=== PATIENT | female | born 1945 | race Caucasian/White ===

== ENCOUNTER 2016-12-16 13:00 | Emergency (ER) | payer MEDICARE, OTHER ==
[2016-12-16 11:17] LABS: BASOPHILS 0.4 %; BASOPHILS ABSOLUTE 0.05 10/3/uL (0.0-0.16); EOSINOPHILS 1.9 %; EOSINOPHILS ABSOLUTE 0.23 10/3/uL (0.0-0.53); ER CBC TAT 0 Hrs 08 Mins; HEMATOCRIT 32.9 % (36.0-48.0); HEMOGLOBIN 10.2 g/dL (12.0-16.0); IMMATURE GRANULOCYTES 1.1 %; IMMATURE GRANULOCYTES ABSOLUTE 0.13 10/3/uL (0.0-0.11); LYMPHOCYTES 18.2 %; LYMPHOCYTES ABSOLUTE 2.21 10/3/uL (0.67-4.30); MANUAL DIFF NO %; MEAN CORPUSCULAR HEMOGLOB 32.1 pg (26.0-34.0); MEAN CORPUSCULAR VOLUME 103.5 fL (80-100); MEAN PLATELET VOLUME 10.1 fL (9.2-13.0); MONOCYTES 7.7 %; MONOCYTES ABSOLUTE 0.93 10/3/uL (0.21-1.20); NEUTROPHILS 70.7 %; NEUTROPHILS ABSOLUTE 8.58 10/3/uL (2.02-8.40); PLATELET COUNT 206 10/3/uL (150-400); RBC DISTRIBUTION WIDTH 14.9 % (12.0-16.0); RED CELL COUNT 3.18 10/6/uL (4.0-5.6); WHITE BLOOD CELLS 12.1 10/3/uL (4.5-10.5)
[2016-12-16 11:24] LABS: BUN (BLOOD UREA NITROGEN) 67 MG/DL (6-23); CALCIUM, SERUM 8.7 MG/DL (8.5-10.4); CHLORIDE, SERUM 99 MMOL/L (96-112); CO2 (CARBON DIOXIDE) 23 MMOL/L (24-34); CREATININE 8.01 MG/DL (0.55-1.02); GFR AFRICAN AMERICAN 5 ML/MIN (>=60); GFR NON AFRICAN AMERICAN 5 ML/MIN (>=60); GLUCOSE, SERUM 150 MG/DL (60-99); SODIUM, SERUM 139 MMOL/L (135-148)
[2016-12-16 11:25] LABS: INFLUENZA A SCREEN NEGATIVE (NEGATIVE); INFLUENZA B SCREEN NEGATIVE (NEGATIVE)
[~2016-12-16 13:00] MED LIST: ABX PO; ACET500CAP PO; AMARYL4 PO; APRES25 PO; APRES50 PO; ASA5GR PO; ASAB PO; ASABAYER PO; ASAEC PO; BACDS PO; BENZONATATE PO; BIDIL20/37; BIDIL20/37 PO; CALMOSEPTINE O2.5 OZ TOP; CALTRA600D PO; CAT1 PO; CAT3 PO; CATAPRES3 TOP; CIP5 PO; CLARINEX5 MG PO; CLINDA150 PO; CO Q-10100 MG PO; CYANO1000T PO; DEPAK250ER PO; DEPAKOT250 PO; DEPAKOTEER PO; DEPASPRINK; DIAMODE2 MG PO; DSS PEG; DSS PO; EYE DROP1 OP; FENOGLIDE120 MG PO; FERROUS SULF325 M1 PO; FISH-EPA1000 MG PO; FOLIC PO; GLUCOPHAGE1000 MG PO; GLUCOTROL5 PO; HALF81 PO; HCTZ25B PO; HYDRALAZINE100 MG PO; HYDROCHLOROT25 MG PO; IBU-200200 MG PO; IMDUR30 PO; IRON; IRON160 MG PO; ISMO20 MG PO; ISORDIL10 PO; ISORDIL20 PO; JANUVIA100 MG PO; JANUVIA50 PO; KLOR-CON M2020 MEQ PO; KLOR-CON-2525 MEQ PO; L20 PO; LACT30UDL PEG; LANTUS SC; LANTUSCART SC; LEVEMIR SC; LEVOTHYROXIN150 MCG PO; LEVSINTAB PO; LIPITOR40 PO; LIPITOR80 MG PEG; LIPITOR80 MG PO; LOP25 PEG; LOP25 PO; LOP50 PO; LOTE40 PO; LOTREL1 CA5 PO; LOVAZA; LOVAZA1 GM PO; MAALOX MAX PEG; METAMUCIL CAN7 OZ PO; METHOC500B PO; MIRALAXPKT PEG; MOBIC7.5 PO; MOMUD PEG; MONOKET20 PO; MUCINEX1200 MG PO; MULTIPLE VIT PO; MULTIVIT/MIN PO; MULTIVITAMI1 PO; NASACORTAQ NAS; NEUR100 PO; NEXIUM40 MG PO; NEXIUM40 PO; NITROSTAT0.4 MG SL; NORCO1 TA1 PEG; NORV10 PO; NORV5; NORV5 PO; NOVOLOG SC; OMACOR; OS500+D PO; PCET PO; PERIOGARD0.12 % MT; PLAVIX PO; PREDFORTE OPH; PREV30 PO; PRILO PO; PRIN20 PO; PROAIR HFA INH; PROBIOTIC OTC PO; PROBIOTIC PO; PROTONIX PEG; PROTONIX PO; PROVENTSOL INH; PROVHFA INH; REFRESH OPH; RENVELA800 MG PO; SEVE800T PO; SPIRO25; SPIRO25 PO; SYN.15 PO; SYNTHROID PO; SYNTHROID137 MCG PO; SYNTHROID175 MCG PO; T PO; TEKTUR150 PO; TEKTURNA300 MG PO; TESS PO; THERGRANM PO; TRAN200 PEG; TRAN200 PO; TRANDAT100 PO; TRILIPIX135 MG PO; TYLENOL ARTH650 MG PEG; VICODINTAB PO; VITAMIN B-121000 MC1 SL; VITAMIN C100 MG PO; VITAMIN D1000 UNI1 PO; VITC500 PEG; VITC500 PO; VITE PO; VYTORIN 10/20 T1 TAB PO; X25 PEG; X25 PO; ZOFRAN4 PEG; ZYRTEC ALLGY10 MG PO; [UNRECOGNIZED DRUG - OTHER] TOP
[2017-01-04] MEDS ORDERED: LIPITOR40 PO (23:18)
[2017-01-04] MEDS ORDERED: DEPAKOT250 PO (23:18)
[2017-01-04] MEDS ORDERED: HALF81 PO (23:18)
[2017-01-04] MEDS ORDERED: ISORDIL20 PO (23:19)
[2017-01-04] MEDS ORDERED: NEUR100 PO (23:19)
[2017-01-04] MEDS ORDERED: ELIQUIS 5 MG TAB5 MG PO (23:19)
[2017-01-04] MEDS ORDERED: MOBIC7.5 PO (23:22)
[2017-01-04] MEDS ORDERED: LANTUSCART SC (23:22)
[2017-04-27] MEDS ORDERED: LIPITOR40 PO (20:29)
[2017-04-27] MEDS ORDERED: PACERONE100 MG PO (20:29)
[2017-04-27] MEDS ORDERED: DEPAK250ER PO (20:30)
[2017-04-27] MEDS ORDERED: NEUR100 PO (20:31)
[2017-04-27] MEDS ORDERED: ELIQUIS 5 MG TAB5 MG PO (20:31)
[2017-04-27] MEDS ORDERED: ISORDIL20 PO (20:34)
[2017-04-27] MEDS ORDERED: LANTUS SC (20:36)
[2017-04-27] MEDS ORDERED: ZESTRIL2.5 MG PO (20:36)
[2017-04-27] MEDS ORDERED: MULTIVITAMI1 PO (20:37)
[2017-04-27] MEDS ORDERED: TOPXL50 PO (20:37)
[2017-04-27] MEDS ORDERED: NOVOLOG SC (20:38)
[2017-04-27] MEDS ORDERED: PROTONIX PO (20:38)
[2017-04-27] MEDS ORDERED: SYN.15 PO (20:39)
[2017-04-27] MEDS ORDERED: LEVOTHYROXIN175 MCG PO (20:42)
[2017-04-27] MEDS ORDERED: VITC500 PO (20:43)
[2017-04-27] MEDS ORDERED: VITAMIN D1000 UNI1 PO (20:43)
[2017-04-27] MEDS ORDERED: IRON PO (20:44)
[2017-04-27] MEDS ORDERED: ACET500CAP PO (20:45)
[2017-04-27] MEDS ORDERED: CALCIUM CARBONATE PO (20:46)
[2017-04-27] MEDS ORDERED: DESITIN TOP (20:47)
[2017-04-27] MEDS ORDERED: ANTIFUNGAL POWDER TOP (20:48)
[2017-05-12] MEDS ORDERED: CORDARONE PO (02:52)
[2017-05-12] MEDS ORDERED: LIPITOR40 PO (02:52)
[2017-05-12] MEDS ORDERED: DEPAKOT250 PO (02:53)
[2017-05-12] MEDS ORDERED: ELIQUIS 5 MG TAB5 MG PO (02:54)
[2017-05-12] MEDS ORDERED: NEUR100 PO (02:54)
[2017-05-12] MEDS ORDERED: ISORDIL20 PO (02:55)
[2017-05-12] MEDS ORDERED: LANTUS SQ (02:56)
[2017-05-12] MEDS ORDERED: PRIN2.5 PO (02:56)
[2017-05-12] MEDS ORDERED: TOPXL50 PO (02:56)
[2017-05-12] MEDS ORDERED: MULTIPLE VIT PO (02:57)
[2017-05-12] MEDS ORDERED: PROTONIX20 MG (03:04)
[2017-05-12] MEDS ORDERED: NOVOLOG SC (03:04)
[2017-05-12] MEDS ORDERED: PROTONIX PO (03:05)
[2017-05-12] MEDS ORDERED: SYN.15 PO (03:06)
[2017-05-12] MEDS ORDERED: SYNTHROID175 MCG PO (03:07)
[2017-05-12] MEDS ORDERED: VITAMIN D1000 UNI1 PO (03:09)
[2017-05-12] MEDS ORDERED: VITC500 PO (03:09)
[2017-05-12] MEDS ORDERED: FERROUS SULF325 M1 PO (03:10)
[2017-05-12] MEDS ORDERED: ACET500CAP PO (03:11)
[2017-05-12] MEDS ORDERED: CALCIUM CARBONATE ×2 (03:13→03:14)
[2017-05-12] MEDS ORDERED: DESITIN (03:14)
[2017-05-12] MEDS ORDERED: ANTIFUNGAL POWDER TOP (03:15)
== END 2016-12-16 14:56 | disposition home or self-care (01) ==
LOC: ER 13:00
PROVIDERS: Emergency Medicine
DX: J06.9 Acute upper respiratory infection, unspecified (principal); I25.2 Old myocardial infarction; Z95.0 Presence of cardiac pacemaker; Z95.5 Presence of coronary angioplasty implant and graft; F32.9 Major depressive disorder, single episode, unspecified; E11.9 Type 2 diabetes mellitus without complications; Z86.73 Personal history of transient ischemic attack (TIA), and cerebral infarction without residual deficits; Z88.5 Allergy status to narcotic agent; Z88.0 Allergy status to penicillin; Z88.1 Allergy status to other antibiotic agents; Z88.2 Allergy status to sulfonamides; Z91.041 Radiographic dye allergy status; Z88.8 Allergy status to other drugs, medicaments and biological substances; Z91.048 Other nonmedicinal substance allergy status; Z91.09 Other allergy status, other than to drugs and biological substances; Z79.82 Long term (current) use of aspirin; Z79.899 Other long term (current) drug therapy; Z79.84 Long term (current) use of oral hypoglycemic drugs
CPT/HCPCS: 71010; 80048; 85025; 87804; 93005; 99285

== ENCOUNTER 2017-01-04 23:22 | Inpatient (IN) | payer MEDICARE, OTHER ==
--- NOTE | ~2017-01-04 | PRECARD ---
H&P [facility] [address] [facility] [place]. [address] NAME: MARISOL REHMAN : 43 STATUS : ADM IN [facility]#: [id number] AGE: 71 ADM/REG DATE : 01/04/17 MR#: [id number] REPORT SERV DATE: 01/05/17 DICTATED BY: ANITA RAO DATE: 01/05/17 REPORT STATUS : Draft TRANSCRIBED BY: KELTON DATE: 01/05/17 DATE OF ADMISSION: 01/04/2017 HISTORY: Ms. Marisol Rehman is a 71-year-old woman with end-stage renal disease, on dialysis, creatinine of 5.1, admitted with diffuse muscle aches and pains, Cardiology is consulted because of a troponin level of 0.3. Ms. Rehman has known coronary artery disease. She has undergone prior bypass surgery. She has known chronic total occlusion of one of the vein grafts, to the PDA. She also has history of prior stroke, implanted Medtronic LINQ device demonstrated no atrial arrhythmia. She also has peripheral arterial disease, undergone prior bypass. She has sick sinus syndrome, she has a Medtronic pacemaker. She has end-stage renal disease, on dialysis, hypertension, diabetes, irritable bowel. She is admitted with a oxkkm-fx-pekt-day history of diffuse weakness, malaise, myalgias, arthralgias. She underwent dialysis on Friday without difficulty. Since then, she has had trouble walking. She requires assistance to walk within her own house. She absolutely denies any chest discomfort whatsoever. She has had no orthopnea or PND. She denies palpitations. No stroke or stroke-like symptoms. PAST MEDICAL HISTORY: Diabetes; hypertension; end-stage renal disease, on dialysis, Friday, Friday, Friday; bipolar disorder. MEDICATIONS: Tylenol, Eliquis, vitamin C, aspirin, Lipitor, Depakote, doxycycline, iron, Neurontin, insulin, isosorbide dinitrate, levothyroxine, meloxicam, metoprolol, multivitamin, Protonix, Renvela, antifungal medications, zinc oxide. Please see the hospital list for full doses which I have reviewed. SOCIAL HISTORY: Denies alcohol and tobacco. REVIEW OF SYSTEMS: Complete review of systems obtained, pertinent negative and unremarkable, except as noted above and below. All systems have been addressed. PHYSICAL EXAMINATION: VITAL SIGNS: Blood pressure 160/70, heart rate approximately 80. GENERAL: Appears lethargic, somnolent, but fully arousable and alert, flat affect. HEENT: No xanthelasma; lips without cyanosis. LUNGS: Clear to auscultation, no wheezes, rales or rhonchi; good breath sounds. COR: No JVD or hepatojugular reflux, no rubs or gallops, impulse mid clavicular line without carotid or abdominal bruits; normal S1 and S2. 2/6 murmur at the apex. ABDOMEN: Bowel sounds positive, normal activity, without tenderness, masses or hepatosplenomegaly. EXTREMITIES: No cyanosis. No edema at all. SKIN: Normal turgor. H&P [address] [address] NAME: MARISOL REHMAN : 43 STATUS : ADM IN [facility]#: [id number] AGE: 71 ADM/REG DATE : 01/04/17 MR#: [id number] REPORT SERV DATE: 01/05/17 DICTATED BY: ANITA RAO DATE: 01/05/17 REPORT STATUS : Draft TRANSCRIBED BY: KELTON DATE: 01/05/17 MS: Normal muscle strength, without kyphosis/scoliosis. NEURO/PSYCH: Alert and oriented times 4, no apparent anxiety or depression. DATA: BUN is 41, creatinine 5.8. White count 8.3, platelet count is 186, hematocrit 36.1. Troponin 0.3. EKG demonstrates sinus rhythm with leftward axis. Nonspecific ST-T wave changes. ASSESSMENT: Ms. Rehman is a 71-year-old woman with known coronary artery disease, end- stage renal disease, admitted with diffuse myalgias, arthralgias, malaise, and weakness. On repeated questioning, she denies any chest discomfort at all. In fact, I am not certain why troponin level was checked. Her symptoms did not suggest an acute coronary syndrome. Her troponin of 0.3 may be chronically at that level given her renal failure on dialysis. Her EKG shows no ischemic changes. PLAN: 1. Advance antihypertensive medications given the elevated systolic pressure with known coronary artery disease and diabetes. 2. Serial biomarkers. 3. Echocardiogram to assess left ventricle function. 4. I will order a CPK given her myalgias and weakness. MT/MODL Anita Rao M.D. / [id number] CC: Lindsey Becerra M.D.
--- NOTE | ~2017-01-04 | DS ---
Discharge Summary [facility] [address] [place]. [address] NAME: MOMO REHMAN : 43 STATUS : DIS IN PAT#: [id number] AGE: 71 ADM/REG DATE : 01/04/17 MR#: [id number] REPORT SERV DATE: 01/23/17 DICTATED BY: JHONNY JIMENEZ DATE: 01/23/17 REPORT STATUS : Draft TRANSCRIBED BY: KELTON DATE: 01/23/17 Data Collection from hospitalization DISCHARGE DIAGNOSES: 1. Upper respiratory infection-not otherwise specified. 2. End-stage renal disease. 3. Atherosclerotic cardiovascular disease, status post coronary artery bypass. 4. Ischemic cardiomyopathy. 5. Anemia of chronic kidney disease. 6. Insulin-dependent diabetes mellitus. 7. Hypertension. 8. History of cryptogenic cerebrovascular accident. 9. Irritable bowel syndrome. 10.Hyperlipidemia. 11.History of bipolar disorder. 12.Peripheral vascular disease. CONSULTATIONS: 1. Amilcar Adler M.D. 2. Jose Rao M.D. PROCEDURES: 1. Cardiac catheterization, 01/08/2017. 2. CT scan of the brain without contrast, 01/05/2017. DISCHARGE MEDICATIONS: Vitamin C 500 mg twice a day; aspirin 81 mg daily; Lipitor 40 mg at bedtime; Cordarone 200 mg daily; vitamin D 1000 units daily; Depakote 750 mg twice a day; Neurontin 100 mg at bedtime; NovoLog injection insulin as instructed; Isordil 45 mg daily; Synthroid 150 mcg on Saturdays and Sundays as instructed; Synthroid 175 mcg on Friday, Friday, Friday, , and Friday as instructed; Prinivil 2.5 mg daily; multivitamins one tablet daily; Toprol-XL 50 mg daily; Protonix 40 mg daily; Renvela 1600 mg with meals; Tylenol caplet 500 mg every six hours as needed; albumin 12.5 g IV as needed; Mylanta 30 mL every four hours as needed; Cathflo 2 mg IV as needed; atropine 0.5 mg IV as needed; ferrous sulfate 325 mg daily. CONDITION ON DISCHARGE: Stable. DISPOSITION: The patient was discharged to [facility] on a renal diet with activities as instructed. HOSPITAL COURSE: This is a 71-year-old female who has end-stage renal disease and is on dialysis. She has a creatinine of 5.1. She presented to the hospital with diffuse muscle aches and pain. She had undergone dialysis on Friday prior to admission without difficulty. Since then, she has had trouble walking. She required assistance to walk within her own house. She absolutely denied any chest discomfort, orthopnea or PND. She denies palpitations, stroke or stroke-like symptoms. She was admitted to the hospital at this time for further evaluation and treatment. Discharge Summary [address] [place]. [address] NAME: MOMO REHMAN : 43 STATUS : DIS IN PAT#: [id number] AGE: 71 ADM/REG DATE : 01/04/17 MR#: [id number] REPORT SERV DATE: 01/23/17 DICTATED BY: JHONNY JIMENEZ DATE: 01/23/17 REPORT STATUS : Draft TRANSCRIBED BY: KELTON DATE: 01/23/17 Upon admission, she was seen by Dr. Jose Rao. The patient was found to have a troponin level of 0.3. She does have coronary artery disease and had undergone prior bypass surgery. She has known chronic total occlusion of one of the vein graft to the PDA. She also has a history of prior stroke and implanted Medtronic LINQ device demonstrated no atrial arrhythmia. She also has peripheral arterial disease and had undergone prior bypass. She has sick sinus syndrome and has a Medtronic pacemaker. She denied any chest discomfort. Creatinine level was 5.8. EKG demonstrated sinus rhythm with leftward axis and nonspecific ST-T wave changes. It was uncertain as to why her troponin level was checked. Her symptoms did not suggest acute coronary syndrome. Her troponin of 0.3 may be chronically at that level given her renal failure on dialysis. EKG showed no ischemic changes. She recommended that we advanced antihypertensive medications given the elevated systolic pressure with known coronary artery disease and diabetes. Serial biomarkers would be obtained. Echocardiogram would be performed to assess left ventricular function. CPK was going to be checked given her myalgias and weakness. She was also seen by Dr. Amilcar Adler, the following day regarding myalgia and cough. She did have a one-day history of cough, productive of brown sputum and significant weakness and malaise. She said that she attended dialysis on Jose prior to this admission without any issues or complaints. She completed dialysis and felt fine afterwards. She denied having any sick contacts. She denied having chest pain, shortness of breath, fever or chills. Blood cultures have been obtained and were pending. Flu test was negative for both A and B. Empiric Levaquin and Tamiflu were started. We were going to check TSH, free T4, procalcitonin, and sputum cultures. Sliding scale insulin will be provided. Lantus was going to be held. Given her poor oral intake, her home blood pressure medications were resumed. Subcu heparin prophylaxis was begun. On 01/06/2017, her body pain was somewhat better. She was still weak. Blood cultures were negative thus far. Levaquin was continued. Her cough was still productive. Her dyspnea did improve after dialysis. She had no chest pain. On 01/07/2017, she said she had a few seconds of chest pain during hemodialysis; otherwise, she was doing well. Her lungs were clear. She was in a sinus rhythm. There were no symptoms suggestive of coronary ischemia. Echocardiogram was performed. On 01/09/2017, she had no edema. She was alert and cooperative. Her lungs were clear. Hemodialysis therapy continued. She was evaluated by Physical Therapy. She had undergone a CT scan of the brain without contrast a couple of days previously. This showed no acute bleed. There was no acute infarct suggested. It was felt that the patient should undergo a cardiac catheterization. She was taken to the [facility] where she underwent the above-mentioned procedure by Dr. Rick Weaver. She tolerated this well, and there were no complications. She had an ejection fraction of 35%. She had multiple episodes of ventricular tachycardia on the evening of 01/09/2017. She had been in ventricular pacing since 2300 hours. Amiodarone was started. Medtronic dual-chamber pacemaker was checked and revealed normal function. On 01/11/2017, hemodialysis therapy continued. She had no chest pain or shortness of breath. Her breathing seemed to be better. Her Toprol-XL was increased. Over the next few days, she had no new symptoms. Discharge planning was performed. She seemed to be getting stronger. On 01/14/2017, she said she felt weak. She had no chest pain or dyspnea. Her lungs remained clear. She had no recurrence of nonsustained ventricular tachycardia. Amiodarone was continued. Discharge instructions were given. Due to her improved and stable condition, she was discharged to [facility] with the above-stated instructions. Discharge Summary [address] [address] NAME: MOMO REHMAN : 43 STATUS : DIS IN PAT#: [id number] AGE: 71 ADM/REG DATE : 01/04/17 MR#: [id number] REPORT SERV DATE: 01/23/17 DICTATED BY: JHONNY JIMENEZ DATE: 01/23/17 REPORT STATUS : Draft TRANSCRIBED BY: KELTON DATE: 01/23/17 Information collected by: Fely Tracy I submit the above information as my discharge summary. TG/KELTON Jhonny Jimenez M.D. / [id number] CC: Lindsey Becerra M.D. Nilesh C Patel, M.D. Mark Thel, M.D. [facility]
--- NOTE | ~2017-01-04 | HP ---
History And Physical [place] [address] [facility] [place]. [address] NAME: MOMO REHMAN : 43 STATUS : ADM IN PAT#: [id number] AGE: 71 ADM/REG DATE : 01/04/17 MR#: [id number] REPORT SERV DATE: 01/05/17 DICTATED BY: MAYELIN ADLER DATE: 01/05/17 REPORT STATUS : Draft TRANSCRIBED BY: KELTON DATE: 01/05/17 DATE OF ADMISSION: 01/05/2017 CHIEF COMPLAINT: Myalgia and cough. BRIEF HISTORY OF PRESENT ILLNESS: 71-year-old white female with end-stage renal disease, hemodialysis on Friday, Friday, and Friday at [facility] via left upper extremity AV fistula in the setting of diabetes mellitus type 2, hypertension, hyperlipidemia, coronary artery disease status post CABG in 2010 with sick-sinus syndrome and pacemaker placement in 04/2013 who presents to [facility] ER with 1-day history of cough productive of "brown sputum" and significant weakness and malaise. She states she attended dialysis on Friday, 01/03 without any issues or complaints and completed dialysis and felt fine afterwards. She denies any sick contacts. Denies any chest pain, shortness of breath, fevers or chills. The patient admitted for further evaluation and concern for elevated troponin from 0.34-0.41 prompting cardiology evaluation. Initial evaluation reveals blood cultures are pending and a flu test that was negative for both A and B. White count of 8.3. PAST MEDICAL HISTORY: 1. End-stage renal disease, hemodialysis on Friday, Friday, and Friday, left upper extremity AV fistula at [facility]. 2. Coronary artery disease, status post CABG in 2010 x4 vessels with chronic total occlusion of the saphenous vein graft to acute marginal. Sick sinus syndrome with pacemaker placement. 3. History of cryptogenic CVAs without arrhythmias noted on loop monitor. 4. Hypertension. 5. Diabetes mellitus type 2. 6. Hyperlipidemia. 7. Irritable bowel syndrome. 8. Peripheral vascular disease with stent to right femoral vessel. 9. History of bipolar disorder. MEDICATIONS ON ADMISSION: Tylenol, Eliquis 5 mg b.i.d., vitamin C 500 mg b.i.d., aspirin 81 mg daily, Lipitor 40 mg at bedtime, vitamin D 1000 units daily, Depakote 750 mg b.i.d., doxycycline 100 mg b.i.d. x10 days completed on 01/02, iron sulfate 325 mg daily, Neurontin 100 mg at bedtime, sliding scale insulin, Lantus insulin, Isordil, Synthroid 150 mcg on Friday and Friday and 175 mcg other days, Mobic daily, Lopressor 12.5 mg b.i.d., multivitamin, Protonix, Renvela, zinc oxide cream. ALLERGIES: MULTIPLE ALLERGIES INCLUDING AVANDIA, SAVELLA, IODINATED CONTRAST, PENICILLIN, IBUPROFEN, HYDROCODONE, CLINDAMYCIN, ADHESIVE BANDAGES, AZITHROMYCIN, JANUVIA. ADVERSE REACTIONS INCLUDE LORCET, MORPHINE, BACTRIM, FLOXIN, ZEST SOAP. SOCIAL HISTORY: Denies tobacco, alcohol, or illicit drug use. FAMILY HISTORY: No history of renal disease. History And Physical [address] [address] NAME: MOMO REHMAN : 43 STATUS : ADM IN [facility]#: [id number] AGE: 71 ADM/REG DATE : 01/04/17 MR#: [id number] REPORT SERV DATE: 01/05/17 DICTATED BY: MAYELIN ADLER DATE: 01/05/17 REPORT STATUS : Draft TRANSCRIBED BY: KELTON DATE: 01/05/17 REVIEW OF SYSTEMS: Except as mentioned. PHYSICAL EXAMINATION: VITAL SIGNS: Temperature 98.6, blood pressure 170/67, pulse is 92, respiratory rate is 18. GENERAL: Chronically ill-appearing white female, in no acute distress. HEENT: Normocephalic and atraumatic. Pupils are equal. Mucous membranes are dry. NECK: Supple. No thyromegaly. CARDIOVASCULAR: Regular rate and rhythm. No murmurs appreciated. Normal S1, S2. RESPIRATORY: Clear to auscultation bilaterally with normal respiratory effort. ABDOMEN: Soft, nontender, nondistended. Positive bowel sounds. No organomegaly. EXTREMITIES: No clubbing, cyanosis, or edema. Left upper extremity AV fistula, positive bruit and thrill. SKIN: No rashes or ulcerations appreciated. NEURO: Moves all extremities well but generalized weakness noted. PSYCH: Oriented x3 with flat affect. : No Carter. No bladder tenderness. LAB DATA: Sodium 141, potassium 5.1, chloride 99, bicarb 26, BUN 41, creatinine 5.8, glucose is 98, calcium is 9.4, magnesium 1.9. White count 8.3, hemoglobin is 10.8, platelet count is 186. INR is 1.4. ASSESSMENT AND PLAN: 1. End-stage renal disease, [facility], Friday, Friday, Friday, underwent hemodialysis on Friday. 2. Myalgias and weakness. Flu is negative. White blood count normal. Afebrile. Blood cultures are pending. Questionable viral prodrome, questionable bronchitis. Empiric Levaquin and Tamiflu. Check TSH, free T4, procalcitonin, sputum cultures. 3. Coronary artery disease with history of bypass and slightly elevated troponins. Appreciate Cardiology evaluation. Recent cath revealing chronic occluded saphenous vein graft with medical management. Serial cardiac markers. No ACS per Cardiology. 4. Diabetes mellitus type 2. Sliding scale insulin and Accu-Cheks. Hold Lantus given poor p.o. intake. 5. Hypertension. Resume home medications. 6. Prophylaxis, heparin subcu b.i.d. NCP/MODL Mayelin Adler M.D. / [id number] CC: Federico Holly M.D. History And Physical [address] [address] NAME: MOMO REHMAN : 43 STATUS : ADM IN PAT#: [id number] AGE: 71 ADM/REG DATE : 01/04/17 MR#: [id number] REPORT SERV DATE: 01/05/17 DICTATED BY: MAYELIN ADLER. DATE: 01/05/17 REPORT STATUS : Draft TRANSCRIBED BY: MODL DATE: 01/05/17 Cristal Han M.D.
[2017-01-04 22:35] LABS: BASOPHILS ABSOLUTE 0.08 10/3/uL (0.0-0.16); EOSINOPHILS 2.9 %; EOSINOPHILS ABSOLUTE 0.24 10/3/uL (0.0-0.53); ER CBC TAT 0 Hrs 13 Mins; HEMATOCRIT 36.1 % (36.0-48.0); HEMOGLOBIN 10.8 g/dL (12.0-16.0); IMMATURE GRANULOCYTES 0.7 %; IMMATURE GRANULOCYTES ABSOLUTE 0.06 10/3/uL (0.0-0.11); LYMPHOCYTES 18.1 %; LYMPHOCYTES ABSOLUTE 1.51 10/3/uL (0.67-4.30); MANUAL DIFF NO %; MEAN CORPUS HGB CONC 29.9 g/dL (32.0-36.0); MEAN CORPUSCULAR HEMOGLOB 31.6 pg (26.0-34.0); MEAN CORPUSCULAR VOLUME 105.6 fL (80-100); MEAN PLATELET VOLUME 10.6 fL (9.2-13.0); MONOCYTES 16.3 %; MONOCYTES ABSOLUTE 1.36 10/3/uL (0.21-1.20); NEUTROPHILS ABSOLUTE 5.08 10/3/uL (2.02-8.40); PLATELET COUNT 186 10/3/uL (150-400); RBC DISTRIBUTION WIDTH 16.6 % (12.0-16.0); RED CELL COUNT 3.42 10/6/uL (4.0-5.6); WHITE BLOOD CELLS 8.3 10/3/uL (4.5-10.5)
[2017-01-04 22:43] LABS: CALCIUM, SERUM 9.4 MG/DL (8.5-10.4); CHLORIDE, SERUM 99 MMOL/L (96-112); CO2 (CARBON DIOXIDE) 26 MMOL/L (24-34); POTASSIUM, SERUM 5.1 MMOL/L (3.5-5.3); SODIUM, SERUM 141 MMOL/L (135-148)
[2017-01-04 22:45] LABS: BUN (BLOOD UREA NITROGEN) 41 MG/DL (6-23); CREATININE 5.81 MG/DL (0.55-1.02); GFR AFRICAN AMERICAN 8 ML/MIN (>=60); GFR NON AFRICAN AMERICAN 7 ML/MIN (>=60); GLUCOSE, SERUM 90 MG/DL (60-99); INTERNATIONAL NORMAL RATI 1.4 UNITS (-)
[2017-01-04 22:46] LABS: CHEST PAIN PROFILE TAT 0 Hrs 24 Mins; PARTIAL THROMBO TIME 36.3 SEC (22.5-37.2); PROTIME (NOT ORD) 17.2 SEC (12.0-14.5); TROPONIN I 0.34 NG/ML (<0.05)
[~2017-01-04 23:22] MED LIST changes: +ELIQUIS 5 MG TAB5 MG PO
[2017-01-04] MEDS ORDERED: TOPXL50 PO (23:23)
[2017-01-04] MEDS ORDERED: MULTIPLE VIT PO (23:23)
[2017-01-04] MEDS ORDERED: NOVOLOG SC (23:24)
[2017-01-04] MEDS ORDERED: PROTONIX PO (23:24)
[2017-01-04] MEDS ORDERED: SYN.15 PO (23:25)
[2017-01-04] MEDS ORDERED: RENVELA800 MG PO (23:25)
[2017-01-04] MEDS ORDERED: VITAMIN D1000 UNI1 PO (23:26)
[2017-01-04] MEDS ORDERED: VITC500 PO (23:26)
[2017-01-04] MEDS ORDERED: SYNTHROID175 MCG PO (23:26)
[2017-01-04] MEDS ORDERED: FERROUS SULF325 M1 PO (23:26)
[2017-01-04] MEDS ORDERED: DESITIN TOP (23:27)
[2017-01-04] MEDS ORDERED: ACET500CAP PO (23:27)
[2017-01-04] MEDS ORDERED: MONODOX100 MG PO (23:30)
[2017-01-05 00:03] LABS: INFLUENZA A SCREEN NEGATIVE (NEGATIVE); INFLUENZA B SCREEN NEGATIVE (NEGATIVE)
[2017-01-05 12:25] LABS: BE (BASE EXCESS) -5.1 MEQ/L (0 +/- 2.5); CARBOXYHEMOGLOBIN 0.7 % (0-3); DEVICE NC; HCO3 (ACTUAL BICARBONATE) 19.5 MEQ/L (23-27); HEMOBLOGIN CONTENT 10.8 G/DL (12-16); INSTRUMENT SERIAL # 11843; METHEMOGLOBIN 0.3 % (0-3); O2 CONTENT 13.8 VOL% (18-24); OPERATOR ID 18642; PCO2 (CO2 TENSION) 35 MMHG (35-45); PO2 (O2 TENSION) 67 MMHG (79-93); SAMPLE Arterial; pH 7.37 (7.37-7.43)
[2017-01-05 14:15] LABS: CPK 35 U/L (0-200)
[2017-01-05 14:16] LABS: CK-MB 1.5 NG/ML
[2017-01-05 14:17] LABS: TROPONIN I 0.47 NG/ML (<0.05)
[2017-01-05 22:49] LABS: CPK 46 U/L (0-200)
[2017-01-05 22:50] LABS: CK-MB 1.7 NG/ML
[2017-01-06 09:04] LABS: BASOPHILS 0.5 %; BASOPHILS ABSOLUTE 0.05 10/3/uL (0.0-0.16); EOSINOPHILS 0.1 %; EOSINOPHILS ABSOLUTE 0.01 10/3/uL (0.0-0.53); HEMOGLOBIN 9.5 g/dL (12.0-16.0); IMMATURE GRANULOCYTES 0.5 %; IMMATURE GRANULOCYTES ABSOLUTE 0.05 10/3/uL (0.0-0.11); LYMPHOCYTES 24.3 %; LYMPHOCYTES ABSOLUTE 2.62 10/3/uL (0.67-4.30); MEAN CORPUSCULAR HEMOGLOB 31.9 pg (26.0-34.0); MEAN PLATELET VOLUME 10.5 fL (9.2-13.0); MONOCYTES 10.2 %; NEUTROPHILS 64.4 %; NEUTROPHILS ABSOLUTE 6.97 10/3/uL (2.02-8.40); PLATELET COUNT 157 10/3/uL (150-400); RBC DISTRIBUTION WIDTH 16.9 % (12.0-16.0); RED CELL COUNT 2.98 10/6/uL (4.0-5.6); WHITE BLOOD CELLS 10.8 10/3/uL (4.5-10.5)
[2017-01-06 09:05] LABS: HEMATOCRIT 30.2 % (36.0-48.0); MANUAL DIFF NO %; MEAN CORPUS HGB CONC 31.5 g/dL (32.0-36.0); MEAN CORPUSCULAR VOLUME 101.3 fL (80-100)
[2017-01-06 09:25] LABS: ALBUMIN 2.7 G/DL (3.5-5.0); CHLORIDE, SERUM 99 MMOL/L (96-112); CPK 34 U/L (0-200); FREE T4 1.09 NG/DL (0.76-1.46); GLUCOSE, SERUM 89 MG/DL (60-99); SODIUM, SERUM 138 MMOL/L (135-148)
[2017-01-06 09:26] LABS: BUN (BLOOD UREA NITROGEN) 63 MG/DL (6-23); CALCIUM, SERUM 8.2 MG/DL (8.5-10.4); CK-MB 1.7 NG/ML; CO2 (CARBON DIOXIDE) 20 MMOL/L (24-34); CREATININE 8.02 MG/DL (0.55-1.02); GFR AFRICAN AMERICAN 5 ML/MIN (>=60); GFR NON AFRICAN AMERICAN 5 ML/MIN (>=60); PHOSPHORUS, SERUM 6.7 MG/DL (2.5-4.5); POTASSIUM, SERUM 6.2 MMOL/L (3.5-5.3)
[2017-01-06 12:06] LABS: PROCALCITONIN 1.45 ng/mL (<0.5)
[2017-01-07 12:08] LABS: BASOPHILS 0.9 %; BASOPHILS ABSOLUTE 0.05 10/3/uL (0.0-0.16); EOSINOPHILS 2.6 %; EOSINOPHILS ABSOLUTE 0.14 10/3/uL (0.0-0.53); HEMATOCRIT 29.7 % (36.0-48.0); HEMOGLOBIN 9.1 g/dL (12.0-16.0); IMMATURE GRANULOCYTES 0.7 %; IMMATURE GRANULOCYTES ABSOLUTE 0.04 10/3/uL (0.0-0.11); LYMPHOCYTES 33.8 %; LYMPHOCYTES ABSOLUTE 1.85 10/3/uL (0.67-4.30); MANUAL DIFF NO %; MEAN CORPUS HGB CONC 30.6 g/dL (32.0-36.0); MEAN CORPUSCULAR HEMOGLOB 31.8 pg (26.0-34.0); MEAN CORPUSCULAR VOLUME 103.8 fL (80-100); MEAN PLATELET VOLUME 10.9 fL (9.2-13.0); MONOCYTES 11.3 %; MONOCYTES ABSOLUTE 0.62 10/3/uL (0.21-1.20); NEUTROPHILS 50.7 %; NEUTROPHILS ABSOLUTE 2.77 10/3/uL (2.02-8.40); PLATELET COUNT 147 10/3/uL (150-400); RBC DISTRIBUTION WIDTH 16.8 % (12.0-16.0); RED CELL COUNT 2.86 10/6/uL (4.0-5.6); WHITE BLOOD CELLS 5.5 10/3/uL (4.5-10.5)
[2017-01-07 12:13] LABS: BUN (BLOOD UREA NITROGEN) 43 MG/DL (6-23); CALCIUM, SERUM 8.3 MG/DL (8.5-10.4); CHLORIDE, SERUM 101 MMOL/L (96-112); CO2 (CARBON DIOXIDE) 25 MMOL/L (24-34); GFR AFRICAN AMERICAN 7 ML/MIN (>=60); GFR NON AFRICAN AMERICAN 6 ML/MIN (>=60); GLUCOSE, SERUM 115 MG/DL (60-99); POTASSIUM, SERUM 4.1 MMOL/L (3.5-5.3); SODIUM, SERUM 140 MMOL/L (135-148)
[2017-01-08 08:33] LABS: BASOPHILS 1.4 %; BASOPHILS ABSOLUTE 0.07 10/3/uL (0.0-0.16); EOSINOPHILS 4.8 %; EOSINOPHILS ABSOLUTE 0.24 10/3/uL (0.0-0.53); HEMATOCRIT 29.5 % (36.0-48.0); HEMOGLOBIN 8.9 g/dL (12.0-16.0); IMMATURE GRANULOCYTES 0.4 %; IMMATURE GRANULOCYTES ABSOLUTE 0.02 10/3/uL (0.0-0.11); LYMPHOCYTES 35.8 %; LYMPHOCYTES ABSOLUTE 1.81 10/3/uL (0.67-4.30); MANUAL DIFF NO %; MEAN CORPUS HGB CONC 30.2 g/dL (32.0-36.0); MEAN CORPUSCULAR HEMOGLOB 31.6 pg (26.0-34.0); MEAN CORPUSCULAR VOLUME 104.6 fL (80-100); MEAN PLATELET VOLUME 10.4 fL (9.2-13.0); MONOCYTES 9.9 %; NEUTROPHILS 47.7 %; NEUTROPHILS ABSOLUTE 2.41 10/3/uL (2.02-8.40); PLATELET COUNT 144 10/3/uL (150-400); RBC DISTRIBUTION WIDTH 16.5 % (12.0-16.0); RED CELL COUNT 2.82 10/6/uL (4.0-5.6); WHITE BLOOD CELLS 5.1 10/3/uL (4.5-10.5)
[2017-01-08 08:39] LABS: INTERNATIONAL NORMAL RATI 1.1 UNITS (-)
[2017-01-08 08:40] LABS: PROTIME (NOT ORD) 14.4 SEC (12.0-14.5)
[2017-01-08 08:45] LABS: ALBUMIN 2.8 G/DL (3.5-5.0); CALCIUM, SERUM 8.8 MG/DL (8.5-10.4); CHLORIDE, SERUM 101 MMOL/L (96-112); CHOL/HDL RATIO(NOT ORDER) 2.7 (0-5); CHOLESTEROL 88 MG/DL (< 200); CO2 (CARBON DIOXIDE) 27 MMOL/L (24-34); GLUCOSE, SERUM 99 MG/DL (60-99); HDL CHOLESTEROL 33 MG/DL (> 49); LDL CHOLESTEROL 12 MG/DL (< 130); NON-HDL CHOLESTEROL 55 MG/DL (< 160); POTASSIUM, SERUM 3.8 MMOL/L (3.5-5.3); SODIUM, SERUM 140 MMOL/L (135-148); TRIGLYCERIDE 215 MG/DL (< 150)
[2017-01-08 08:49] LABS: BUN (BLOOD UREA NITROGEN) 20 MG/DL (6-23); GFR AFRICAN AMERICAN 11 ML/MIN (>=60); GFR NON AFRICAN AMERICAN 9 ML/MIN (>=60); PHOSPHORUS, SERUM 2.6 MG/DL (2.5-4.5)
[2017-01-09 08:21] LABS: CALCIUM, SERUM 8.7 MG/DL (8.5-10.4); CHLORIDE, SERUM 101 MMOL/L (96-112); CO2 (CARBON DIOXIDE) 23 MMOL/L (24-34); CREATININE 4.31 MG/DL (0.55-1.02); GFR AFRICAN AMERICAN 11 ML/MIN (>=60); GFR NON AFRICAN AMERICAN 10 ML/MIN (>=60); SODIUM, SERUM 138 MMOL/L (135-148)
[2017-01-09 08:22] LABS: BUN (BLOOD UREA NITROGEN) 28 MG/DL (6-23); GLUCOSE, SERUM 170 MG/DL (60-99); POTASSIUM, SERUM 5.1 MMOL/L (3.5-5.3)
[2017-01-09 21:20] LABS: CALCIUM, SERUM 8.4 MG/DL (8.5-10.4); CHLORIDE, SERUM 103 MMOL/L (96-112); CO2 (CARBON DIOXIDE) 25 MMOL/L (24-34); GFR AFRICAN AMERICAN 14 ML/MIN (>=60); GFR NON AFRICAN AMERICAN 12 ML/MIN (>=60); GLUCOSE, SERUM 195 MG/DL (60-99); SODIUM, SERUM 142 MMOL/L (135-148)
[2017-01-09 21:26] LABS: BUN (BLOOD UREA NITROGEN) 17 MG/DL (6-23); CREATININE 3.59 MG/DL (0.55-1.02); POTASSIUM, SERUM 3.6 MMOL/L (3.5-5.3)
[2017-01-10 12:04] LABS: BASOPHILS 0.7 %; BASOPHILS ABSOLUTE 0.06 10/3/uL (0.0-0.16); EOSINOPHILS 1.6 %; EOSINOPHILS ABSOLUTE 0.13 10/3/uL (0.0-0.53); HEMOGLOBIN 9.3 g/dL (12.0-16.0); IMMATURE GRANULOCYTES ABSOLUTE 0.08 10/3/uL (0.0-0.11); LYMPHOCYTES 38.6 %; LYMPHOCYTES ABSOLUTE 3.23 10/3/uL (0.67-4.30); MEAN CORPUSCULAR HEMOGLOB 31.8 pg (26.0-34.0); MEAN CORPUSCULAR VOLUME 106.2 fL (80-100); MEAN PLATELET VOLUME 10.4 fL (9.2-13.0); MONOCYTES 7.5 %; MONOCYTES ABSOLUTE 0.63 10/3/uL (0.21-1.20); NEUTROPHILS 50.6 %; NEUTROPHILS ABSOLUTE 4.24 10/3/uL (2.02-8.40); PLATELET COUNT 152 10/3/uL (150-400); RBC DISTRIBUTION WIDTH 16.3 % (12.0-16.0); RED CELL COUNT 2.92 10/6/uL (4.0-5.6)
[2017-01-10 12:05] LABS: MANUAL DIFF NO %; WHITE BLOOD CELLS 8.4 10/3/uL (4.5-10.5)
[2017-01-10 12:18] LABS: ALBUMIN 3.1 G/DL (3.5-5.0); BUN (BLOOD UREA NITROGEN) 24 MG/DL (6-23); CALCIUM, SERUM 8.5 MG/DL (8.5-10.4); CHLORIDE, SERUM 102 MMOL/L (96-112); CO2 (CARBON DIOXIDE) 23 MMOL/L (24-34); CREATININE 4.55 MG/DL (0.55-1.02); GFR AFRICAN AMERICAN 10 ML/MIN (>=60); GFR NON AFRICAN AMERICAN 9 ML/MIN (>=60); GLUCOSE, SERUM 140 MG/DL (60-99); PHOSPHORUS, SERUM 2.5 MG/DL (2.5-4.5); SODIUM, SERUM 141 MMOL/L (135-148)
[2017-01-10 12:21] LABS: A/G RATIO 0.8 (0.7-1.9); ALBUMIN 3.1 G/DL (3.5-5.0); ALKALINE PHOSPHATASE 67 U/L (45-117); BUN (BLOOD UREA NITROGEN) 24 MG/DL (6-23); CALCIUM, SERUM 8.4 MG/DL (8.5-10.4); CHLORIDE, SERUM 103 MMOL/L (96-112); CO2 (CARBON DIOXIDE) 23 MMOL/L (24-34); CREATININE 4.49 MG/DL (0.55-1.02); GFR AFRICAN AMERICAN 11 ML/MIN (>=60); GFR NON AFRICAN AMERICAN 9 ML/MIN (>=60); GLOBULIN 3.7 G/DL (2.5-4.1); GLUCOSE, SERUM 139 MG/DL (60-99); SGOT(AST) 23 U/L (5-40); SGPT(ALT) 13 U/L (5-65); SODIUM, SERUM 141 MMOL/L (135-148); TOTAL BILIRUBIN 0.5 MG/DL (0-1.2); TOTAL PROTEIN 6.8 G/DL (6.0-8.5)
[2017-01-11 08:01] LABS: BASOPHILS 0.8 %; BASOPHILS ABSOLUTE 0.06 10/3/uL (0.0-0.16); EOSINOPHILS 3.2 %; EOSINOPHILS ABSOLUTE 0.25 10/3/uL (0.0-0.53); HEMATOCRIT 29.2 % (36.0-48.0); HEMOGLOBIN 8.9 g/dL (12.0-16.0); IMMATURE GRANULOCYTES 1.9 %; IMMATURE GRANULOCYTES ABSOLUTE 0.15 10/3/uL (0.0-0.11); LYMPHOCYTES 38.1 %; LYMPHOCYTES ABSOLUTE 2.98 10/3/uL (0.67-4.30); MEAN CORPUS HGB CONC 30.5 g/dL (32.0-36.0); MEAN CORPUSCULAR HEMOGLOB 31.2 pg (26.0-34.0); MEAN PLATELET VOLUME 10.1 fL (9.2-13.0); MONOCYTES 7.4 %; MONOCYTES ABSOLUTE 0.58 10/3/uL (0.21-1.20); NEUTROPHILS 48.6 %; PLATELET COUNT 149 10/3/uL (150-400); RBC DISTRIBUTION WIDTH 16.2 % (12.0-16.0); RED CELL COUNT 2.85 10/6/uL (4.0-5.6); WHITE BLOOD CELLS 7.8 10/3/uL (4.5-10.5)
[2017-01-11 08:08] LABS: MANUAL DIFF NO %; MEAN CORPUSCULAR VOLUME 102.5 fL (80-100)
[2017-01-11 08:16] LABS: ALBUMIN 2.9 G/DL (3.5-5.0); BUN (BLOOD UREA NITROGEN) 30 MG/DL (6-23); CALCIUM, SERUM 8.6 MG/DL (8.5-10.4); CHLORIDE, SERUM 102 MMOL/L (96-112); CO2 (CARBON DIOXIDE) 20 MMOL/L (24-34); CREATININE 5.74 MG/DL (0.55-1.02); GFR AFRICAN AMERICAN 8 ML/MIN (>=60); GFR NON AFRICAN AMERICAN 7 ML/MIN (>=60); GLUCOSE, SERUM 85 MG/DL (60-99); PHOSPHORUS, SERUM 2.9 MG/DL (2.5-4.5); POTASSIUM, SERUM 4.3 MMOL/L (3.5-5.3); SODIUM, SERUM 137 MMOL/L (135-148)
[2017-01-12 06:18] LABS: BASOPHILS ABSOLUTE 0.06 10/3/uL (0.0-0.16); EOSINOPHILS 4.1 %; EOSINOPHILS ABSOLUTE 0.24 10/3/uL (0.0-0.53); HEMATOCRIT 28.2 % (36.0-48.0); HEMOGLOBIN 8.5 g/dL (12.0-16.0); IMMATURE GRANULOCYTES 1.7 %; LYMPHOCYTES 42.4 %; MANUAL DIFF NO %; MEAN CORPUS HGB CONC 30.1 g/dL (32.0-36.0); MEAN CORPUSCULAR HEMOGLOB 31.6 pg (26.0-34.0); MEAN CORPUSCULAR VOLUME 104.8 fL (80-100); MEAN PLATELET VOLUME 10.4 fL (9.2-13.0); MONOCYTES 10.9 %; MONOCYTES ABSOLUTE 0.64 10/3/uL (0.21-1.20); NEUTROPHILS 39.9 %; NEUTROPHILS ABSOLUTE 2.35 10/3/uL (2.02-8.40); PLATELET COUNT 159 10/3/uL (150-400); RBC DISTRIBUTION WIDTH 16.7 % (12.0-16.0); RED CELL COUNT 2.69 10/6/uL (4.0-5.6); WHITE BLOOD CELLS 5.9 10/3/uL (4.5-10.5)
[2017-01-12 06:38] LABS: ALBUMIN 2.8 G/DL (3.5-5.0); CALCIUM, SERUM 8.4 MG/DL (8.5-10.4); CHLORIDE, SERUM 106 MMOL/L (96-112); CO2 (CARBON DIOXIDE) 24 MMOL/L (24-34); POTASSIUM, SERUM 4.1 MMOL/L (3.5-5.3); SODIUM, SERUM 143 MMOL/L (135-148)
[2017-01-12 06:40] LABS: BUN (BLOOD UREA NITROGEN) 19 MG/DL (6-23); CREATININE 4.02 MG/DL (0.55-1.02); GFR AFRICAN AMERICAN 12 ML/MIN (>=60); GFR NON AFRICAN AMERICAN 10 ML/MIN (>=60); GLUCOSE, SERUM 119 MG/DL (60-99); PHOSPHORUS, SERUM 1.3 MG/DL (2.5-4.5)
[2017-01-13 08:59] LABS: BASOPHILS 0.6 %; BASOPHILS ABSOLUTE 0.04 10/3/uL (0.0-0.16); EOSINOPHILS 4.9 %; EOSINOPHILS ABSOLUTE 0.31 10/3/uL (0.0-0.53); HEMATOCRIT 28.4 % (36.0-48.0); HEMOGLOBIN 8.5 g/dL (12.0-16.0); IMMATURE GRANULOCYTES 1.9 %; IMMATURE GRANULOCYTES ABSOLUTE 0.12 10/3/uL (0.0-0.11); LYMPHOCYTES 40.9 %; LYMPHOCYTES ABSOLUTE 2.59 10/3/uL (0.67-4.30); MEAN CORPUS HGB CONC 29.9 g/dL (32.0-36.0); MEAN CORPUSCULAR HEMOGLOB 31.1 pg (26.0-34.0); MEAN PLATELET VOLUME 10.6 fL (9.2-13.0); MONOCYTES 10.1 %; MONOCYTES ABSOLUTE 0.64 10/3/uL (0.21-1.20); NEUTROPHILS 41.6 %; NEUTROPHILS ABSOLUTE 2.64 10/3/uL (2.02-8.40); PLATELET COUNT 175 10/3/uL (150-400); RBC DISTRIBUTION WIDTH 16.6 % (12.0-16.0); RED CELL COUNT 2.73 10/6/uL (4.0-5.6); WHITE BLOOD CELLS 6.3 10/3/uL (4.5-10.5)
[2017-01-13 09:00] LABS: MANUAL DIFF NO %
[2017-01-13 09:05] LABS: ALBUMIN 2.8 G/DL (3.5-5.0); CALCIUM, SERUM 8.4 MG/DL (8.5-10.4); CHLORIDE, SERUM 101 MMOL/L (96-112); CO2 (CARBON DIOXIDE) 24 MMOL/L (24-34); POTASSIUM, SERUM 4.8 MMOL/L (3.5-5.3); SODIUM, SERUM 139 MMOL/L (135-148)
[2017-01-13 09:06] LABS: BUN (BLOOD UREA NITROGEN) 31 MG/DL (6-23); CREATININE 5.61 MG/DL (0.55-1.02); GFR AFRICAN AMERICAN 8 ML/MIN (>=60); GFR NON AFRICAN AMERICAN 7 ML/MIN (>=60); GLUCOSE, SERUM 77 MG/DL (60-99); PHOSPHORUS, SERUM 2.2 MG/DL (2.5-4.5)
[2017-04-27] MEDS ORDERED: PACERONE100 MG PO (20:29)
[2017-04-27] MEDS ORDERED: LIPITOR40 PO (20:29)
[2017-04-27] MEDS ORDERED: DEPAK250ER PO (20:30)
[2017-04-27] MEDS ORDERED: NEUR100 PO (20:31)
[2017-04-27] MEDS ORDERED: ELIQUIS 5 MG TAB5 MG PO (20:31)
[2017-04-27] MEDS ORDERED: ISORDIL20 PO (20:34)
[2017-04-27] MEDS ORDERED: LANTUS SC (20:36)
[2017-04-27] MEDS ORDERED: ZESTRIL2.5 MG PO (20:36)
[2017-04-27] MEDS ORDERED: MULTIVITAMI1 PO (20:37)
[2017-04-27] MEDS ORDERED: TOPXL50 PO (20:37)
[2017-04-27] MEDS ORDERED: PROTONIX PO (20:38)
[2017-04-27] MEDS ORDERED: NOVOLOG SC (20:38)
[2017-04-27] MEDS ORDERED: SYN.15 PO (20:39)
[2017-04-27] MEDS ORDERED: LEVOTHYROXIN175 MCG PO (20:42)
[2017-04-27] MEDS ORDERED: VITC500 PO (20:43)
[2017-04-27] MEDS ORDERED: VITAMIN D1000 UNI1 PO (20:43)
[2017-04-27] MEDS ORDERED: IRON PO (20:44)
[2017-04-27] MEDS ORDERED: ACET500CAP PO (20:45)
[2017-04-27] MEDS ORDERED: CALCIUM CARBONATE PO (20:46)
[2017-04-27] MEDS ORDERED: DESITIN TOP (20:47)
[2017-04-27] MEDS ORDERED: ANTIFUNGAL POWDER TOP (20:48)
[2017-05-12] MEDS ORDERED: LIPITOR40 PO (02:52)
[2017-05-12] MEDS ORDERED: CORDARONE PO (02:52)
[2017-05-12] MEDS ORDERED: DEPAKOT250 PO (02:53)
[2017-05-12] MEDS ORDERED: ELIQUIS 5 MG TAB5 MG PO (02:54)
[2017-05-12] MEDS ORDERED: NEUR100 PO (02:54)
[2017-05-12] MEDS ORDERED: ISORDIL20 PO (02:55)
[2017-05-12] MEDS ORDERED: TOPXL50 PO (02:56)
[2017-05-12] MEDS ORDERED: LANTUS SQ (02:56)
[2017-05-12] MEDS ORDERED: PRIN2.5 PO (02:56)
[2017-05-12] MEDS ORDERED: MULTIPLE VIT PO (02:57)
[2017-05-12] MEDS ORDERED: PROTONIX20 MG (03:04)
[2017-05-12] MEDS ORDERED: NOVOLOG SC (03:04)
[2017-05-12] MEDS ORDERED: PROTONIX PO (03:05)
[2017-05-12] MEDS ORDERED: SYN.15 PO (03:06)
[2017-05-12] MEDS ORDERED: SYNTHROID175 MCG PO (03:07)
[2017-05-12] MEDS ORDERED: VITAMIN D1000 UNI1 PO (03:09)
[2017-05-12] MEDS ORDERED: VITC500 PO (03:09)
[2017-05-12] MEDS ORDERED: FERROUS SULF325 M1 PO (03:10)
[2017-05-12] MEDS ORDERED: ACET500CAP PO (03:11)
[2017-05-12] MEDS ORDERED: CALCIUM CARBONATE ×2 (03:13→03:14)
[2017-05-12] MEDS ORDERED: DESITIN (03:14)
[2017-05-12] MEDS ORDERED: ANTIFUNGAL POWDER TOP (03:15)
== END 2017-01-14 15:17 | DRG 286 ==
LOC: ER 23:22 → 2SO 23:37
PROVIDERS: Emergency Medicine; Internal Medicine Cardiovascular Disease; Internal Medicine Nephrology; Nurse Practitioner; Nurse Practitioner Family
PROC: 5A1D60Z (ICD-10-PCS; 2017-01-06)
PROC: 4A023N7 Measurement of Cardiac Sampling and Pressure, Left Heart, Percutaneous Approach (ICD-10-PCS; principal; 2017-01-08)
PROC: B2151ZZ Fluoroscopy of Left Heart using Low Osmolar Contrast (ICD-10-PCS; 2017-01-08)
PROC: B2181ZZ Fluoroscopy of Left Internal Mammary Bypass Graft using Low Osmolar Contrast (ICD-10-PCS; 2017-01-08)
PROC: B2131ZZ Fluoroscopy of Multiple Coronary Artery Bypass Grafts using Low Osmolar Contrast (ICD-10-PCS; 2017-01-08)
PROC: B2111ZZ Fluoroscopy of Multiple Coronary Arteries using Low Osmolar Contrast (ICD-10-PCS; 2017-01-08)
DX: I25.719 Atherosclerosis of autologous vein coronary artery bypass graft(s) with unspecified angina pectoris (principal); N18.6 End stage renal disease; I47.2 Ventricular tachycardia; I50.22 Chronic systolic (congestive) heart failure; E11.22 Type 2 diabetes mellitus with diabetic chronic kidney disease; E78.5 Hyperlipidemia, unspecified; E87.5 Hyperkalemia; I25.10 Atherosclerotic heart disease of native coronary artery without angina pectoris; K58.9 Irritable bowel syndrome, unspecified; I73.9 Peripheral vascular disease, unspecified; F31.9 Bipolar disorder, unspecified; M79.1 Myalgia; D63.1 Anemia in chronic kidney disease; I25.2 Old myocardial infarction; Z99.2 Dependence on renal dialysis; Z79.4 Long term (current) use of insulin; Z95.1 Presence of aortocoronary bypass graft; Z95.0 Presence of cardiac pacemaker; Z79.84 Long term (current) use of oral hypoglycemic drugs
CPT/HCPCS: 36600; 70450; 71010; 71020; 80048; 80053; 80061; 80069; 82330; 82550; 82553; 82805; 82962; 83735; 84145; 84439; 84443; 84484; 85025; 85610; 85730; 87040; 87070; 87205; 87804; 93005; 93459; 94640; 97162-GP; 99152; 99153; 99285; A9270-GY; C1769; C8923; C9113; G0257; G8978-CL-GP; G8979-CJ-GP; J0360; J0885; J1956; J2250; J2405; J2930; J3010; P9047; Q9957; Q9967

== ENCOUNTER 2017-02-02 16:46 | Inpatient (IN) | payer MEDICARE, OTHER ==
--- NOTE | ~2017-02-02 | DS ---
Discharge Summary [facility] [address] [place]. [address] NAME: MOMO REHMAN : 43 STATUS : DIS IN PAT#: [id number] AGE: 71 ADM/REG DATE : 02/03/17 MR#: [id number] REPORT SERV DATE: 02/24/17 DICTATED BY: SEGUN TUBBS DATE: 02/21/17 REPORT STATUS : Draft TRANSCRIBED BY: KELTON DATE: 02/21/17 Data Collection from hospitalization DISCHARGE DIAGNOSES: 1. Pneumonia/healthcare-associated pneumonia. 2. End-stage renal disease. 3. Hyperkalemia. 4. Pulmonary fibrosis. 5. Extended-spectrum beta-lactamases. 6. Coronary artery disease. 7. Hypertension. 8. Type 2 diabetes mellitus. 9. Hyperlipidemia. 10.Peripheral vascular disease. 11.Bipolar disorder. 12.History of cardiogenic cerebrovascular accident. CONSULTATIONS: 1. Kvng Fontenot M.D. 2. Sacha Andrade M.D. PROCEDURES PERFORMED: CT scan of the chest without contrast on 02/03/2017. MEDICATIONS: Eliquis 5 mg twice a day, vitamin C 500 mg twice a day, Lipitor 40 mg at bedtime, Cordarone 100 mg twice a day, vitamin D 1000 units daily, Depakote 750 mg twice a day, ferrous sulfate 300 mg-325 mg as instructed, Neurontin 100 mg at bedtime - hold for sedation, NovoLog injection insulin as instructed, Lantus 6 units subcutaneously at bedtime, Isordil 45 mg daily, Synthroid as instructed, Theragran tablets one tablet daily, Toprol-XL 50 mg daily - hold for systolic less than or equal to 105 and heart rate less than or equal to 50, Protonix 40 mg before breakfast, Renvela 1600 mg with meals, Tylenol 500 mg every six hours as needed, and amlodipine 5 mg daily as instructed - hold for systolic less than 120. CONDITION ON DISCHARGE: Stable. DISPOSITION: The patient was discharged to [facility] on a renal diet with activities as instructed. HOSPITAL COURSE: This is a 71-year-old female who presented to the hospital with shortness of breath. According to her , she had low blood pressure on dialysis, Friday prior to this admission. They could not get her to dry weight and had recently been at [facility] for rehabilitation. She left there Friday the week prior to admission. She had dialyzed twice at her clinic on Friday and Friday. She was admitted to the hospital at this time for further evaluation and treatment. Upon admission, chest x-ray showed pulmonary edema, possible right-sided infiltrate, and left pleural effusion. She was on aspirin and Eliquis with hemoptysis. We planned on stopping the aspirin. Troponin was going to be checked. She does have a history of coronary artery disease and pacer for sick sinus syndrome. Her home insulin dose was Discharge Summary [place] [id number] [facility] [place]. [address] NAME: MOMO REHMAN : 43 STATUS : DIS IN PAT#: [id number] AGE: 71 ADM/REG DATE : 02/03/17 MR#: [id number] REPORT SERV DATE: 02/24/17 DICTATED BY: SEGUN TUBBS DATE: 02/21/17 REPORT STATUS : Draft TRANSCRIBED BY: KELTON DATE: 02/21/17 continued. Her bipolar disorder medications were also continued. The following day, dialysis therapy was performed. Antibiotics were continued. Hemoptysis had resolved. On 02/05/2017, the patient was seen by Dr. Kvng Fontenot. A CT scan of the chest without contrast had confirmed patchy consolidation/atelectasis in the basilar aspect of the lower lobes of both lungs as well as within the lingula with some patchy consolidation also seen within the posterior left upper lobe. The patient had been given broad-spectrum antibiotics for possible healthcare-associated pneumonia. She had no further fever. Her white blood cell count was normal. She said she felt much better and her cough had decreased. She had no further hemoptysis. Urine culture had returned greater than 100,000 colonies of ESBL E. coli. The urinalysis showed marked pyuria. The patient does void very scant amounts, maybe once or twice a day. She denied any dysuria or other symptoms with that. She was felt to have probable pneumonia on admission, which must be considered to be healthcare associated. She may also have had a component of failure. She was improving on the present empiric antibiotics. He wanted to stop the Levaquin soon as he did note the potential interaction with the amiodarone. On 02/07/2017, she felt well. She had been evaluated by Physical Therapy. Hemodialysis therapy was performed. She had no dysuria. Her T-max was 99.4. White count was 6. Levaquin was discontinued. Vancomycin and aztreonam were continued. On 02/08/2017, she had no new issues. She said she was feeling better. She had no cough. Discharge planning was performed. She remained afebrile. She complained of some ankle and knee pain. An x-ray of the right knee and right ankle was performed. It was felt there was probable demineralization and calcific atherosclerosis. There was no acute right knee abnormality. On 02/11/2017, she was alert and cooperative. She had no focal deficits. Discharge instructions were given. Due to her improved and stable condition, she was discharged to [facility] with the above-stated instructions. Information collected by: Fely Tracy I submit the above information as my discharge summary. TG/MODL Segun Tubbs M.D. / [id number] CC: Lindsey White M.D. Hal Hill, M.D. [facility]
--- NOTE | ~2017-02-02 | CN ---
Consultation Report [facility] [address] [place]. [address] NAME: MOMO REHMAN : 43 STATUS : ADM IN [facility]#: [id number] AGE: 71 ADM/REG DATE : 02/03/17 MR#: [id number] REPORT SERV DATE: 02/06/17 DICTATED BY: JOANNA FONTENOT DATE: 02/06/17 REPORT STATUS : Draft TRANSCRIBED BY: MODL DATE: 02/06/17 INFECTIOUS DISEASE CONSULTATION DATE OF CONSULTATION: 02/06/2017 REASON FOR CONSULTATION: ESBL E. coli, urine culture, along with pneumonia. HISTORY OF PRESENT ILLNESS: This is a 71-year-old female with a past medical history notable for end-stage renal disease, on dialysis for some time along with coronary artery disease, hypertension, diabetes, and other chronic medical problems. The patient was in the hospital for about nine days in early January with upper respiratory infection and other problems. She was discharged on 01/14/2017 to [facility], where she stayed for two weeks, and then went home. After only four days at home, she re-presented to the emergency department on the afternoon of 02/02/2017 complaining of shortness of breath, cough at times productive of some bloody sputum along with green sputum, and some fevers. Her initial white blood cell count was 11,500, and she did spike a fever to 101.1 within the first 24 hours of admission. Her initial chest x-ray in the Emergency Department revealed extensive bilateral interstitial and airspace process compared with 01/13/2017 x-ray. It was not clear initially whether this was due to failure or infection. The patient underwent a CT scan of the chest without contrast on 02/03/2017, which confirmed patchy consolidation/atelectasis in the basilar aspects of the lower lobes of both lungs as well as within the lingula with some patchy consolidation also seen within the posterior left upper lobe. On my review, there are air bronchograms there. There was also diffuse patchy ground-glass opacity in the remainder of the both lungs. The patient was given broad-spectrum antibiotics for possible healthcare-associated pneumonia with vancomycin, aztreonam, and Levaquin. She has had no further fevers. Her white blood cell count is normal. She feels much better with decreased cough. No further hemoptysis and just much improved condition overall. Urine culture was also obtained on admission, which has returned with greater than 100,000 colonies of ESBL E. coli with the urinalysis showing marked pyuria. The patient does avoid very scant amounts maybe once or twice a day. She denies any dysuria or other symptoms with that. PAST MEDICAL HISTORY: In addition to the above is notable for bipolar disorder, cryptogenic CVAs, and irritable bowel syndrome along with hyperlipidemia. ALLERGIES: PENICILLIN CAUSES A RASH. ALTHOUGH OF NOTE, SHE RECEIVED A COURSE OF ZOSYN IN 2015. CLINDAMYCIN CAUSES SHORTNESS OF BREATH. SHE HAD SOME CONFUSION AND STUMBLING WITH OFLOXACIN IN THE DISTANT PAST. SHE HAS BEEN TOLD IN THE PAST NOT TO TAKE AZITHROMYCIN, BUT SHE IS NOT SURE WHY. THERE ARE NUMBER OF OTHER NONANTIBIOTIC MEDICATION ALLERGIES OR INTOLERANCES. PRESENT MEDICATIONS: In addition to the antibiotics mentioned include amiodarone, Eliquis, vitamin C, Lipitor, Depakote, iron, Neurontin, Isordil, Synthroid, Lopressor, multivitamins, Protonix, and Renvela. Consultation Report [address] [place]. [address] NAME: MOMO REHMAN : 43 STATUS : ADM IN [facility]#: [id number] AGE: 71 ADM/REG DATE : 02/03/17 MR#: [id number] REPORT SERV DATE: 02/06/17 DICTATED BY: JOANNA FONTENOT DATE: 02/06/17 REPORT STATUS : Draft TRANSCRIBED BY: KELTON DATE: 02/06/17 SOCIAL HISTORY: Nonsmoker and nondrinker. and lives with her . FAMILY HISTORY: Noncontributory. REVIEW OF SYSTEMS: As outlined above. In addition, she denies any nausea, vomiting, diarrhea, or chest pain. PHYSICAL EXAMINATION: VITAL SIGNS: The patient weighs 78 kg. She is afebrile. Blood pressure 161/86, pulse 68, respiratory rate 16 to 18 and nonlabored, and oxygen saturation 98% on 2 L. GENERAL: She is alert, pleasant, bright affect, getting ready to eat breakfast. HEAD AND NECK: The oral cavity is clear without thrush. Neck is supple. LUNGS: She has fairly diffuse scattered crackles and rhonchi throughout her posterior lung bernard. CARDIAC: Regular rate and rhythm. Normal S1, S2 without murmur, gallop, or rub. ABDOMEN: Bowel sounds are present. The abdomen is nondistended, soft, and nontender. EXTREMITIES: No edema. She has peripheral IV without phlebitis. The patient has an AV fistula in her left forearm without signs of infection. LABORATORY STUDIES: White blood cell counts as mentioned above, her white count today is 6.4, hemoglobin 8.6, and platelets 179. Procalcitonin on 02/03/2017, 0.47. Liver function tests are normal. Albumin 2.8. Culture data as mentioned above. Her blood cultures on admission were negative. Repeat chest x-ray on 02/04/2017 shows significant improvement in the bilateral pulmonary infiltrates. IMPRESSION: 1. Extended-spectrum beta-lactamases Escherichia coli bacteria in a dialysis patient. She is asymptomatic with this and has very minimal urine output and I suspect this just represents colonization with urine stasis in her bladder. 2. Probable pneumonia on admission, which must be considered to be healthcare-associated. She also may have had a component of failure. She is improving on the present empiric antibiotics. PLAN: 1. I would not give any treatment for the bacteriuria, but she does need to be on contact precautions. 2. We will discuss the duration of antibiotic therapy and possible plan to deescalation of antibiotics with Dr. Andrade. We would like to stop the Levaquin soon, and I do note the potential interaction with the amiodarone. KATHIE/KELTON Joanna Fontenot, Consultation Report [place] [id number] [facility] [place]. [address] NAME: MOMO REHMAN : 43 STATUS : ADM IN PAT#: [id number] AGE: 71 ADM/REG DATE : 02/03/17 MR#: [id number] REPORT SERV DATE: 02/06/17 DICTATED BY: JOANNA FONTENOT DATE: 02/06/17 REPORT STATUS : Draft TRANSCRIBED BY: KELTON DATE: 02/06/17 Lindsey / [id number] CC: Lindsey White M.D. Joseph Watlington, M.D.
--- NOTE | ~2017-02-02 | HP ---
History And Physical [place] [place] [id number] [place]. [address] NAME: MOMO REHMAN : 43 STATUS : ADM IN [facility]#: [id number] AGE: 71 ADM/REG DATE : 02/03/17 MR#: [id number] REPORT SERV DATE: 02/03/17 DICTATED BY: SEGUN TUBBS DATE: 02/03/17 REPORT STATUS : Draft TRANSCRIBED BY: KELTON DATE: 02/03/17 DATE OF ADMISSION: 02/02/2017 HISTORY OF PRESENT ILLNESS: Ms. Rehman is a 71-year-old white female, admitted to the hospital for shortness of breath from home. She has according to her , had low blood pressure on dialysis, Friday. They could not get her to her dry weight and was recently at [facility] for rehabilitation, and left there Friday last week. Has dialyzed twice at her clinic, Friday and Friday, I am calling for records. PAST MEDICAL HISTORY: End-stage renal disease, on Friday, Friday, Friday at [facility]; coronary artery disease, with a pacer and coronary bypass grafting in 2010; cardiogenic CVA in the past; hypertension; diabetes mellitus type 2, on insulin; hyperlipidemia; peripheral vascular disease with stent in her iliac; and bipolar disorder. SOCIAL HISTORY: No tobacco. No alcohol. No drugs. , lives with her . FAMILY HISTORY: Noncontributory. No history of chronic kidney disease. ALLERGIES: SHE IS ALLERGIC TO MULTIPLE MEDICATIONS, INCLUDING AVANDIA, SAVELLA, CONTRAST DYE, PENICILLINS, HYDROCODONE, IBUPROFEN, CLINDAMYCIN, ADHESIVE BANDAGE, AZITHROMYCIN, JANUVIA, LORCET, MORPHINE, SULFAMETHOXAZOLE AND TRIMETHOPRIM, OFLOXACIN AND ZEST SOAP. HOME MEDICATIONS: I do not have her current list, but the list that she had last admission was acetaminophen, Eliquis, vitamin C, aspirin, atorvastatin, vitamin D3, Depakote, ferrous sulfate, Neurontin, insulin both Novolin and Lantus, isosorbide dinitrate, levothyroxine, meloxicam, metoprolol, multivitamins, pantoprazole, Renvela, antifungal powder as well as Desitin cream and amiodarone. REVIEW OF SYSTEMS: On Friday, was feeling well. On Friday, she did not eat or drink very much. Took her medications. noticed on Friday, she was quite short of breath, progressively worse during the day, and brought her to the emergency room that evening. No fever, but has had a productive cough. In fact, he mentions that she has had hemoptysis now for 2 weeks. Was on Vibramycin on discharge from [facility], but no improvement. Most recently, started on amiodarone last hospitalization due to arrhythmias. PHYSICAL EXAMINATION: VITAL SIGNS: Today 152/76, heart rate 85, respirations 22, temperature 97.9. Weight 72.5 kg predialysis. GENERAL: Alert, cooperative, coughing up some red sputum. LUNGS: Decreased breath sounds at the bases. Rales anteriorly. CARDIOVASCULAR: Grade 2 systolic ejection murmur. ABDOMEN: Soft. Bowel sounds are present. Nontender. EXTREMITIES: No edema. NEURO: Nonfocal. SKIN: No rash. Using her left arm for AV fistula for hemodialysis. History And Physical [address] [place]. [address] NAME: MOMO REHMAN : 43 STATUS : ADM IN [facility]#: [id number] AGE: 71 ADM/REG DATE : 02/03/17 MR#: [id number] REPORT SERV DATE: 02/03/17 DICTATED BY: SEGUN TUBBS DATE: 02/03/17 REPORT STATUS : Draft TRANSCRIBED BY: KELTON DATE: 02/03/17 LABORATORY DATA: Shows sodium 141, potassium 5.5, repeat 6.2, chloride 104, CO2 of 25, BUN is 63, creatinine 8.6, blood sugar 115, lactic acid 1.7. White count 8.8, hemoglobin 8.5, hematocrit 26.6, with platelet count 145,000. Urinalysis shows pyuria. Chest x-ray shows pulmonary edema, possible right-sided infiltrate, and left pleural effusion. ASSESSMENT: 1. Hypoxia. Pulmonary edema versus pneumonia. We will ask Pulmonary to see. Ultra filtering on hemodialysis. Try to get below her dry weight if her blood pressure will allow. She is on aspirin and Eliquis with hemoptysis. We will plan on stopping the aspirin. 2. End-stage renal disease, on hemodialysis today. 3. History of coronary artery disease and pacer for sick sinus syndrome. We will check a troponin. 4. Diabetes mellitus type 2. Continue home insulin dose. 5. Bipolar disorder, on medications. PLAN: Pulmonary to follow and admit to the hospital. NATASHA/KELTON Segun Tubbs M.D. / [id number] CC: Lindsey White M.D.
--- NOTE | ~2017-02-02 | CN ---
Consultation Report [facility] [address] [place]. [address] NAME: MARISOL REHMAN : 43 STATUS : ADM IN [facility]#: [id number] AGE: 71 ADM/REG DATE : 02/03/17 MR#: [id number] REPORT SERV DATE: 02/03/17 DICTATED BY: SACHA BRAVO DATE: 02/03/17 REPORT STATUS : Draft TRANSCRIBED BY: MODL DATE: 02/03/17 CONSULTATION DATE OF CONSULTATION: Dear Dr. Slaughter: Thank you for requesting my opinion regarding evaluation and management of Ms. Marisol Rehman's shortness of breath. Ms. Rehman is a 71-year-old female with a significant past medical history of end-stage renal disease, coronary artery disease, status post coronary artery bypass grafting, pacer, CVA, hypertension, diabetes, peripheral vascular disease and bipolar disorder, who presents to [facility] with worsening shortness of breath and dyspnea on exertion. The patient recently may have missed a day of dialysis. She denies any current fevers, chills, night sweats, nausea, vomiting, diarrhea, or constipation. She does state that she has had increasing weakness, fatigue, and scant hemoptysis. Of note, she is on Eliquis and aspirin at home. REVIEW OF SYSTEMS: A detailed 14-point review of systems was completed. Pertinent positives and negatives are listed above. PAST MEDICAL HISTORY: 1. End-stage renal disease, on dialysis Friday, Friday, and Friday at [facility]. 2. Coronary artery disease. 3. Status post coronary artery bypass graft surgery in 2010. 4. Pacemaker. 5. Embolic CVA. 6. Diabetes type 2. 7. Hyperlipidemia. 8. Peripheral vascular disease. 9. Bipolar disorder. PAST SURGICAL HISTORY: 1. As above. 2. Stent in her iliac. SOCIAL HISTORY: The patient does not drink alcohol, smoke tobacco, or abuse illicit drugs. She is and lives with her , who is by her bedside. FAMILY HISTORY: No history of chronic kidney disease. ALLERGIES: AVANDIA, SAVELLA, CONTRAST DYE, PENICILLINS, HYDROCODONE, IBUPROFEN, CLINDAMYCIN, ADHESIVE BANDAGE, AZITHROMYCIN, JANUVIA, LORCET, MORPHINE, BACTRIM, OFLOXACIN, AND ZEST SOAP. Consultation Report [facility] [address] [place]. [address] NAME: MARISOL REHMAN : 43 STATUS : ADM IN PAT#: [id number] AGE: 71 ADM/REG DATE : 02/03/17 MR#: [id number] REPORT SERV DATE: 02/03/17 DICTATED BY: SACHA BRAVO DATE: 02/03/17 REPORT STATUS : Draft TRANSCRIBED BY: KELTON DATE: 02/03/17 HOME MEDICATIONS: Reviewed and located in the paper chart. PHYSICAL EXAMINATION: VITAL SIGNS: Afebrile, T current 97.8; pulse of 80; respiratory rate of 20; 4 L nasal cannula 97%; blood pressure 140/70; BMI 69. GENERAL: Chronically ill-appearing female. HEENT: Normocephalic and atraumatic. Pupils are equal, round, reactive to light and accommodation. Posterior oropharynx is clear, not crowded, and no exudates. NECK: Status post previous trach with healed scar. CARDIOVASCULAR: Regular rate and rhythm. S1 and S2 present. No obvious murmurs, rubs, or clicks. LUNGS: Diminished breath sounds bilaterally. Coarse rhonchi and crackles at the bases. ABDOMEN: Nontender, nondistended, soft. Positive bowel sounds. EXTREMITIES: No clubbing, cyanosis, or edema. SKIN: No new rashes, lesions, or ulcers. PSYCHIATRIC: Alert and oriented x3. Appropriate mood and affect. Appropriate insight and judgment. NEUROLOGIC: 5/5 strength in upper and lower extremities. Cranial nerves 2 through 12 intact. Gait not tested. DTRs not performed. SKIN: Left-sided pacemaker. DIAGNOSTIC STUDIES: Chest x-ray demonstrates bilateral interstitial and airspace process and a possible left-sided pleural effusion on chest x-ray performed on 02/02/2017. This chest x ray has been personally reviewed by me. ASSESSMENT AND PLAN: Ms. Marisol Rehman is an extremely pleasant 71-year-old female with a significant past medical history of end-stage renal disease, prior respiratory failure requiring trach and PEG, coronary artery disease, status post CABG and pacemaker placement and peripheral vascular disease with iliac stent, who presents to [facility] with worsening shortness of breath, dyspnea on exertion, and scant hemoptysis. The patient is of note on aspirin and Eliquis. I agree with holding her aspirin and continuing Eliquis given the scant amount. Her chest x-ray demonstrates bilateral infiltrates and possible left-sided pleural effusion, and urine culture demonstrates greater than 100,000 gram-negative rods to be identified. At this point, I recommend the following to optimize her pulmonary status and better delineate the underlying causes of her shortness of breath: 1. Hold aspirin. 2. Continue Eliquis. 3. CT scan of the chest, noncontrast. 4. Add aztreonam. Continue vanc and Levaquin. 5. BiPAP p.r.n. 6. Further recommendations pending clinical response and CT scan of the chest. This plan was discussed in detail with Mr. Rehman and the patient. Consultation Report [address] [place]. [address] NAME: MARISOL REHMAN : 43 STATUS : ADM IN PAT#: [id number] AGE: 71 ADM/REG DATE : 02/03/17 MR#: [id number] REPORT SERV DATE: 02/03/17 DICTATED BY: SACHA BRAVO DATE: 02/03/17 REPORT STATUS : Draft TRANSCRIBED BY: KELTON DATE: 02/03/17 Thank you for allowing me to participate in Ms. Rehman's care. NAT/KELTON Sacha Bravo M.D. / [id number] CC: Lindsey White M.D.
[~2017-02-02 16:46] MED LIST changes: +DESITIN TOP; +MONODOX100 MG PO; +TOPXL50 PO
[2017-02-02 17:24] LABS: BASOPHILS 0.4 %; BASOPHILS ABSOLUTE 0.05 10/3/uL (0.0-0.16); EOSINOPHILS 2.3 %; EOSINOPHILS ABSOLUTE 0.26 10/3/uL (0.0-0.53); IMMATURE GRANULOCYTES 0.7 %; IMMATURE GRANULOCYTES ABSOLUTE 0.08 10/3/uL (0.0-0.11); LYMPHOCYTES 16.5 %; LYMPHOCYTES ABSOLUTE 1.89 10/3/uL (0.67-4.30); MEAN CORPUS HGB CONC 30.8 g/dL (32.0-36.0); MEAN CORPUSCULAR HEMOGLOB 31.6 pg (26.0-34.0); MEAN CORPUSCULAR VOLUME 102.8 fL (80-100); MEAN PLATELET VOLUME 10.7 fL (9.2-13.0); MONOCYTES 10.8 %; MONOCYTES ABSOLUTE 1.24 10/3/uL (0.21-1.20); NEUTROPHILS 69.3 %; NEUTROPHILS ABSOLUTE 7.95 10/3/uL (2.02-8.40); PLATELET COUNT 174 10/3/uL (150-400); RBC DISTRIBUTION WIDTH 18.1 % (12.0-16.0); RED CELL COUNT 3.16 10/6/uL (4.0-5.6)
[2017-02-02 17:26] LABS: ER CBC TAT 0 Hrs 09 Mins; HEMATOCRIT 32.5 % (36.0-48.0); MANUAL DIFF NO %; WHITE BLOOD CELLS 11.5 10/3/uL (4.5-10.5)
[2017-02-02 17:43] LABS: CALCIUM, SERUM 9.2 MG/DL (8.5-10.4); CHLORIDE, SERUM 104 MMOL/L (96-112); CO2 (CARBON DIOXIDE) 25 MMOL/L (24-34); POTASSIUM, SERUM 5.5 MMOL/L (3.5-5.3); SGOT(AST) 23 U/L (5-40); SGPT(ALT) 11 U/L (5-65); SODIUM, SERUM 141 MMOL/L (135-148); TOTAL BILIRUBIN 0.4 MG/DL (0-1.2)
[2017-02-02 17:45] LABS: A/G RATIO 0.8 (0.7-1.9); ALBUMIN 3.5 G/DL (3.5-5.0); ALKALINE PHOSPHATASE 105 U/L (45-117); BUN (BLOOD UREA NITROGEN) 63 MG/DL (6-23); CREATININE 8.67 MG/DL (0.55-1.02); GFR AFRICAN AMERICAN 5 ML/MIN (>=60); GFR NON AFRICAN AMERICAN 4 ML/MIN (>=60); GLOBULIN 4.5 G/DL (2.5-4.1); GLUCOSE, SERUM 115 MG/DL (60-99)
[2017-02-02 23:49] LABS: ASCORBIC ACID (UR NOT ORDER) NEG (NEG); BILIRUBIN, URINE NEGATIVE (NEG); ER URINALYSIS TAT 0 Hrs 00 Mins; KETONE, URINE NEGATIVE (NEG); LEUKOCYTE ESTERASE(NOT OR LARGE (NEG); NITRITE (URINE) NEG (NEG)
[2017-02-03 00:15] LABS: WBC (NOT ORDERED) (RFLEX) > 182 (0-5)
[2017-02-03 09:22] LABS: BASOPHILS 0.5 %; BASOPHILS ABSOLUTE 0.04 10/3/uL (0.0-0.16); EOSINOPHILS 0.6 %; EOSINOPHILS ABSOLUTE 0.05 10/3/uL (0.0-0.53); HEMOGLOBIN 8.5 g/dL (12.0-16.0); IMMATURE GRANULOCYTES 0.6 %; IMMATURE GRANULOCYTES ABSOLUTE 0.05 10/3/uL (0.0-0.11); LYMPHOCYTES 25.4 %; LYMPHOCYTES ABSOLUTE 2.23 10/3/uL (0.67-4.30); MEAN CORPUSCULAR HEMOGLOB 31.8 pg (26.0-34.0); MEAN PLATELET VOLUME 10.7 fL (9.2-13.0); MONOCYTES 9.6 %; MONOCYTES ABSOLUTE 0.84 10/3/uL (0.21-1.20); NEUTROPHILS 63.3 %; NEUTROPHILS ABSOLUTE 5.56 10/3/uL (2.02-8.40); PLATELET COUNT 145 10/3/uL (150-400); RBC DISTRIBUTION WIDTH 18.1 % (12.0-16.0); RED CELL COUNT 2.67 10/6/uL (4.0-5.6); WHITE BLOOD CELLS 8.8 10/3/uL (4.5-10.5)
[2017-02-03 09:25] LABS: HEMATOCRIT 26.6 % (36.0-48.0); MEAN CORPUSCULAR VOLUME 99.6 fL (80-100)
[2017-02-03 09:26] LABS: MANUAL DIFF NO %
[2017-02-03 09:41] LABS: ALBUMIN 2.8 G/DL (3.5-5.0); BUN (BLOOD UREA NITROGEN) 73 MG/DL (6-23); CALCIUM, SERUM 8.9 MG/DL (8.5-10.4); CHLORIDE, SERUM 102 MMOL/L (96-112); CO2 (CARBON DIOXIDE) 20 MMOL/L (24-34); CREATININE 9.61 MG/DL (0.55-1.02); GFR AFRICAN AMERICAN 4 ML/MIN (>=60); GFR NON AFRICAN AMERICAN 4 ML/MIN (>=60); GLUCOSE, SERUM 83 MG/DL (60-99); POTASSIUM, SERUM 6.2 MMOL/L (3.5-5.3); SODIUM, SERUM 138 MMOL/L (135-148)
[2017-02-03 10:39] LABS: PROCALCITONIN 0.47 ng/mL (<0.5)
[2017-02-03] MEDS ORDERED: PACERONE100 MG PO (15:14)
[2017-02-03] MEDS ORDERED: PRIN2.5 PO (15:16)
[2017-02-03] MEDS ORDERED: B121000P IM (15:57)
[2017-02-05 14:59] LABS: BASOPHILS 0.6 %; BASOPHILS ABSOLUTE 0.04 10/3/uL (0.0-0.16); EOSINOPHILS ABSOLUTE 0.34 10/3/uL (0.0-0.53); HEMATOCRIT 25.7 % (36.0-48.0); IMMATURE GRANULOCYTES 0.9 %; IMMATURE GRANULOCYTES ABSOLUTE 0.06 10/3/uL (0.0-0.11); LYMPHOCYTES 25.5 %; LYMPHOCYTES ABSOLUTE 1.72 10/3/uL (0.67-4.30); MEAN CORPUS HGB CONC 31.1 g/dL (32.0-36.0); MEAN CORPUSCULAR HEMOGLOB 31.4 pg (26.0-34.0); MEAN CORPUSCULAR VOLUME 100.8 fL (80-100); MEAN PLATELET VOLUME 10.2 fL (9.2-13.0); MONOCYTES 10.2 %; MONOCYTES ABSOLUTE 0.69 10/3/uL (0.21-1.20); NEUTROPHILS 57.8 %; NEUTROPHILS ABSOLUTE 3.89 10/3/uL (2.02-8.40); PLATELET COUNT 173 10/3/uL (150-400); RBC DISTRIBUTION WIDTH 18.2 % (12.0-16.0); RED CELL COUNT 2.55 10/6/uL (4.0-5.6); WHITE BLOOD CELLS 6.7 10/3/uL (4.5-10.5)
[2017-02-05 15:04] LABS: MANUAL DIFF NO %
[2017-02-05 15:17] LABS: ALBUMIN 2.8 G/DL (3.5-5.0); CHLORIDE, SERUM 104 MMOL/L (96-112); CO2 (CARBON DIOXIDE) 23 MMOL/L (24-34); SODIUM, SERUM 144 MMOL/L (135-148)
[2017-02-05 15:18] LABS: BUN (BLOOD UREA NITROGEN) 66 MG/DL (6-23); CREATININE 8.49 MG/DL (0.55-1.02); GFR AFRICAN AMERICAN 5 ML/MIN (>=60); GFR NON AFRICAN AMERICAN 4 ML/MIN (>=60); GLUCOSE, SERUM 170 MG/DL (60-99); POTASSIUM, SERUM 4.6 MMOL/L (3.5-5.3)
[2017-02-06 06:06] LABS: BASOPHILS 0.5 %; BASOPHILS ABSOLUTE 0.03 10/3/uL (0.0-0.16); EOSINOPHILS ABSOLUTE 0.32 10/3/uL (0.0-0.53); HEMATOCRIT 27.6 % (36.0-48.0); HEMOGLOBIN 8.6 g/dL (12.0-16.0); IMMATURE GRANULOCYTES 0.9 %; IMMATURE GRANULOCYTES ABSOLUTE 0.06 10/3/uL (0.0-0.11); LYMPHOCYTES 26.8 %; MEAN CORPUS HGB CONC 31.2 g/dL (32.0-36.0); MEAN CORPUSCULAR HEMOGLOB 31.5 pg (26.0-34.0); MEAN CORPUSCULAR VOLUME 101.1 fL (80-100); MEAN PLATELET VOLUME 10.1 fL (9.2-13.0); MONOCYTES 9.9 %; MONOCYTES ABSOLUTE 0.63 10/3/uL (0.21-1.20); NEUTROPHILS 56.9 %; NEUTROPHILS ABSOLUTE 3.61 10/3/uL (2.02-8.40); PLATELET COUNT 179 10/3/uL (150-400); RBC DISTRIBUTION WIDTH 18.6 % (12.0-16.0); RED CELL COUNT 2.73 10/6/uL (4.0-5.6); WHITE BLOOD CELLS 6.4 10/3/uL (4.5-10.5)
[2017-02-06 06:07] LABS: MANUAL DIFF NO %
[2017-02-06 06:16] LABS: ALBUMIN 2.7 G/DL (3.5-5.0); CALCIUM, SERUM 8.8 MG/DL (8.5-10.4); CHLORIDE, SERUM 107 MMOL/L (96-112); CO2 (CARBON DIOXIDE) 25 MMOL/L (24-34); POTASSIUM, SERUM 4.3 MMOL/L (3.5-5.3); SODIUM, SERUM 145 MMOL/L (135-148)
[2017-02-06 06:17] LABS: BUN (BLOOD UREA NITROGEN) 37 MG/DL (6-23); CREATININE 5.39 MG/DL (0.55-1.02); GFR AFRICAN AMERICAN 9 ML/MIN (>=60); GFR NON AFRICAN AMERICAN 7 ML/MIN (>=60); GLUCOSE, SERUM 117 MG/DL (60-99); PHOSPHORUS, SERUM 3.2 MG/DL (2.5-4.5)
[2017-02-07 09:14] LABS: BASOPHILS 0.8 %; BASOPHILS ABSOLUTE 0.05 10/3/uL (0.0-0.16); EOSINOPHILS 5.4 %; EOSINOPHILS ABSOLUTE 0.32 10/3/uL (0.0-0.53); HEMATOCRIT 25.8 % (36.0-48.0); HEMOGLOBIN 8.1 g/dL (12.0-16.0); IMMATURE GRANULOCYTES 0.5 %; IMMATURE GRANULOCYTES ABSOLUTE 0.03 10/3/uL (0.0-0.11); LYMPHOCYTES 28.6 %; LYMPHOCYTES ABSOLUTE 1.71 10/3/uL (0.67-4.30); MEAN CORPUS HGB CONC 31.4 g/dL (32.0-36.0); MEAN CORPUSCULAR HEMOGLOB 31.5 pg (26.0-34.0); MEAN CORPUSCULAR VOLUME 100.4 fL (80-100); MEAN PLATELET VOLUME 10.1 fL (9.2-13.0); MONOCYTES 10.9 %; MONOCYTES ABSOLUTE 0.65 10/3/uL (0.21-1.20); NEUTROPHILS 53.8 %; NEUTROPHILS ABSOLUTE 3.22 10/3/uL (2.02-8.40); PLATELET COUNT 183 10/3/uL (150-400); RBC DISTRIBUTION WIDTH 18.2 % (12.0-16.0); RED CELL COUNT 2.57 10/6/uL (4.0-5.6)
[2017-02-07 09:15] LABS: MANUAL DIFF NO %
[2017-02-07 09:34] LABS: ALBUMIN 2.7 G/DL (3.5-5.0); CALCIUM, SERUM 8.5 MG/DL (8.5-10.4); CHLORIDE, SERUM 105 MMOL/L (96-112); CO2 (CARBON DIOXIDE) 21 MMOL/L (24-34); GFR AFRICAN AMERICAN 6 ML/MIN (>=60); GFR NON AFRICAN AMERICAN 5 ML/MIN (>=60); GLUCOSE, SERUM 104 MG/DL (60-99); POTASSIUM, SERUM 4.4 MMOL/L (3.5-5.3); SODIUM, SERUM 140 MMOL/L (135-148)
[2017-02-07 09:35] LABS: BUN (BLOOD UREA NITROGEN) 53 MG/DL (6-23); CREATININE 7.24 MG/DL (0.55-1.02)
[2017-02-08 07:07] LABS: BASOPHILS 1.2 %; BASOPHILS ABSOLUTE 0.07 10/3/uL (0.0-0.16); EOSINOPHILS 5.4 %; EOSINOPHILS ABSOLUTE 0.31 10/3/uL (0.0-0.53); HEMATOCRIT 26.8 % (36.0-48.0); HEMOGLOBIN 8.2 g/dL (12.0-16.0); IMMATURE GRANULOCYTES 0.9 %; IMMATURE GRANULOCYTES ABSOLUTE 0.05 10/3/uL (0.0-0.11); LYMPHOCYTES 33.7 %; LYMPHOCYTES ABSOLUTE 1.95 10/3/uL (0.67-4.30); MEAN CORPUS HGB CONC 30.6 g/dL (32.0-36.0); MEAN CORPUSCULAR HEMOGLOB 31.3 pg (26.0-34.0); MEAN CORPUSCULAR VOLUME 102.3 fL (80-100); MONOCYTES 10.4 %; NEUTROPHILS 48.4 %; PLATELET COUNT 200 10/3/uL (150-400); RBC DISTRIBUTION WIDTH 18.2 % (12.0-16.0); RED CELL COUNT 2.62 10/6/uL (4.0-5.6); WHITE BLOOD CELLS 5.8 10/3/uL (4.5-10.5)
[2017-02-08 07:19] LABS: ALBUMIN 2.7 G/DL (3.5-5.0); CALCIUM, SERUM 8.4 MG/DL (8.5-10.4); CHLORIDE, SERUM 104 MMOL/L (96-112); CO2 (CARBON DIOXIDE) 25 MMOL/L (24-34); GFR AFRICAN AMERICAN 10 ML/MIN (>=60); GFR NON AFRICAN AMERICAN 8 ML/MIN (>=60); GLUCOSE, SERUM 96 MG/DL (60-99); PHOSPHORUS, SERUM 3.3 MG/DL (2.5-4.5); POTASSIUM, SERUM 4.4 MMOL/L (3.5-5.3); SODIUM, SERUM 139 MMOL/L (135-148)
[2017-02-08 07:20] LABS: BUN (BLOOD UREA NITROGEN) 30 MG/DL (6-23); CREATININE 4.85 MG/DL (0.55-1.02); MANUAL DIFF NO %
[2017-02-10 13:15] LABS: BASOPHILS 0.6 %; BASOPHILS ABSOLUTE 0.05 10/3/uL (0.0-0.16); EOSINOPHILS 3.4 %; HEMATOCRIT 25.7 % (36.0-48.0); HEMOGLOBIN 8.2 g/dL (12.0-16.0); IMMATURE GRANULOCYTES 0.7 %; IMMATURE GRANULOCYTES ABSOLUTE 0.06 10/3/uL (0.0-0.11); LYMPHOCYTES 19.5 %; MANUAL DIFF NO %; MEAN CORPUS HGB CONC 31.9 g/dL (32.0-36.0); MEAN CORPUSCULAR HEMOGLOB 31.9 pg (26.0-34.0); MEAN PLATELET VOLUME 10.5 fL (9.2-13.0); MONOCYTES 10.7 %; MONOCYTES ABSOLUTE 0.93 10/3/uL (0.21-1.20); NEUTROPHILS 65.1 %; NEUTROPHILS ABSOLUTE 5.69 10/3/uL (2.02-8.40); PLATELET COUNT 205 10/3/uL (150-400); RBC DISTRIBUTION WIDTH 17.8 % (12.0-16.0); RED CELL COUNT 2.57 10/6/uL (4.0-5.6); WHITE BLOOD CELLS 8.7 10/3/uL (4.5-10.5)
[2017-02-10 13:34] LABS: ALBUMIN 2.8 G/DL (3.5-5.0); CALCIUM, SERUM 8.7 MG/DL (8.5-10.4); CHLORIDE, SERUM 102 MMOL/L (96-112); CO2 (CARBON DIOXIDE) 21 MMOL/L (24-34); GLUCOSE, SERUM 115 MG/DL (60-99); SODIUM, SERUM 137 MMOL/L (135-148)
[2017-02-10 13:35] LABS: BUN (BLOOD UREA NITROGEN) 69 MG/DL (6-23); CREATININE 8.13 MG/DL (0.55-1.02); GFR AFRICAN AMERICAN 5 ML/MIN (>=60); GFR NON AFRICAN AMERICAN 4 ML/MIN (>=60)
[2017-04-27] MEDS ORDERED: LIPITOR40 PO (20:29)
[2017-04-27] MEDS ORDERED: PACERONE100 MG PO (20:29)
[2017-04-27] MEDS ORDERED: DEPAK250ER PO (20:30)
[2017-04-27] MEDS ORDERED: NEUR100 PO (20:31)
[2017-04-27] MEDS ORDERED: ELIQUIS 5 MG TAB5 MG PO (20:31)
[2017-04-27] MEDS ORDERED: ISORDIL20 PO (20:34)
[2017-04-27] MEDS ORDERED: LANTUS SC (20:36)
[2017-04-27] MEDS ORDERED: ZESTRIL2.5 MG PO (20:36)
[2017-04-27] MEDS ORDERED: MULTIVITAMI1 PO (20:37)
[2017-04-27] MEDS ORDERED: TOPXL50 PO (20:37)
[2017-04-27] MEDS ORDERED: NOVOLOG SC (20:38)
[2017-04-27] MEDS ORDERED: PROTONIX PO (20:38)
[2017-04-27] MEDS ORDERED: SYN.15 PO (20:39)
[2017-04-27] MEDS ORDERED: LEVOTHYROXIN175 MCG PO (20:42)
[2017-04-27] MEDS ORDERED: VITC500 PO (20:43)
[2017-04-27] MEDS ORDERED: VITAMIN D1000 UNI1 PO (20:43)
[2017-04-27] MEDS ORDERED: IRON PO (20:44)
[2017-04-27] MEDS ORDERED: ACET500CAP PO (20:45)
[2017-04-27] MEDS ORDERED: CALCIUM CARBONATE PO (20:46)
[2017-04-27] MEDS ORDERED: DESITIN TOP (20:47)
[2017-04-27] MEDS ORDERED: ANTIFUNGAL POWDER TOP (20:48)
[2017-05-12] MEDS ORDERED: LIPITOR40 PO (02:52)
[2017-05-12] MEDS ORDERED: CORDARONE PO (02:52)
[2017-05-12] MEDS ORDERED: DEPAKOT250 PO (02:53)
[2017-05-12] MEDS ORDERED: ELIQUIS 5 MG TAB5 MG PO (02:54)
[2017-05-12] MEDS ORDERED: NEUR100 PO (02:54)
[2017-05-12] MEDS ORDERED: ISORDIL20 PO (02:55)
[2017-05-12] MEDS ORDERED: LANTUS SQ (02:56)
[2017-05-12] MEDS ORDERED: PRIN2.5 PO (02:56)
[2017-05-12] MEDS ORDERED: TOPXL50 PO (02:56)
[2017-05-12] MEDS ORDERED: MULTIPLE VIT PO (02:57)
[2017-05-12] MEDS ORDERED: PROTONIX20 MG (03:04)
[2017-05-12] MEDS ORDERED: NOVOLOG SC (03:04)
[2017-05-12] MEDS ORDERED: PROTONIX PO (03:05)
[2017-05-12] MEDS ORDERED: SYN.15 PO (03:06)
[2017-05-12] MEDS ORDERED: SYNTHROID175 MCG PO (03:07)
[2017-05-12] MEDS ORDERED: VITAMIN D1000 UNI1 PO (03:09)
[2017-05-12] MEDS ORDERED: VITC500 PO (03:09)
[2017-05-12] MEDS ORDERED: FERROUS SULF325 M1 PO (03:10)
[2017-05-12] MEDS ORDERED: ACET500CAP PO (03:11)
[2017-05-12] MEDS ORDERED: CALCIUM CARBONATE ×2 (03:13→03:14)
[2017-05-12] MEDS ORDERED: DESITIN (03:14)
[2017-05-12] MEDS ORDERED: ANTIFUNGAL POWDER TOP (03:15)
== END 2017-02-11 18:09 | DRG 193 ==
LOC: ER 16:46 → 2SO 23:59
PROVIDERS: Internal Medicine Nephrology; Nurse Practitioner; Nurse Practitioner Acute Care
PROC: 5A09457 Assistance with Respiratory Ventilation, 24-96 Consecutive Hours, Continuous Positive Airway Pressure (ICD-10-PCS; principal; 2017-02-03)
PROC: 5A1D60Z (ICD-10-PCS; 2017-02-03)
DX: J18.9 Pneumonia, unspecified organism (principal); N18.6 End stage renal disease; L89.152 Pressure ulcer of sacral region, stage 2; J90 Pleural effusion, not elsewhere classified; J80 Acute respiratory distress syndrome; E11.22 Type 2 diabetes mellitus with diabetic chronic kidney disease; I12.0 Hypertensive chronic kidney disease with stage 5 chronic kidney disease or end stage renal disease; N39.0 Urinary tract infection, site not specified; R04.2 Hemoptysis; B96.20 Unspecified Escherichia coli [E. coli] as the cause of diseases classified elsewhere; I25.5 Ischemic cardiomyopathy; I25.10 Atherosclerotic heart disease of native coronary artery without angina pectoris; E78.5 Hyperlipidemia, unspecified; F31.9 Bipolar disorder, unspecified; E87.5 Hyperkalemia; Y95 Nosocomial condition; Z99.2 Dependence on renal dialysis; Z95.5 Presence of coronary angioplasty implant and graft; Z95.1 Presence of aortocoronary bypass graft; Z86.73 Personal history of transient ischemic attack (TIA), and cerebral infarction without residual deficits; Z88.0 Allergy status to penicillin; Z88.5 Allergy status to narcotic agent; Z88.1 Allergy status to other antibiotic agents; Z88.2 Allergy status to sulfonamides; Z91.041 Radiographic dye allergy status; Z79.899 Other long term (current) drug therapy; Z79.82 Long term (current) use of aspirin; Z79.4 Long term (current) use of insulin
CPT/HCPCS: 71010; 71250; 73560-RT; 73610-RT; 80053; 80069; 80202; 81001; 82962; 83605; 83735; 84145; 84484; 85025; 87040; 87077; 87086; 87186; 93005; 94640; 97161-GP; 99285; A9270-GY; G0257; G8978-CL-GP; G8979-CK-GP; J1956; J3370